=== PATIENT | female | born 1985 | race Caucasian/White ===

== ENCOUNTER 2023-03-24 10:06 | Outpatient (OUT) | payer BC, SELFPAY ==
[2023-03-24 12:04] LABS: Basophils Absolute Auto 0.1 10^3/uL (0.0-0.1); Eosinophils Absolute Auto 0.1 10^3/uL (0.0-0.7); Eosinophils Percent Auto 1.1 % (0.9-7.0); Hemoglobin 11.4 g/dL (12.0-16.0); Immature Granulocytes Abs Auto 0.01 10^3/uL (0.00-0.03); Immature Granulocytes Pct Auto 0.1 % (0.0-0.5); Lymphocytes Absolute Auto 3.2 10^3/uL (1.2-3.8); Lymphocytes Percent Auto 37.5 % (20.5-60.0); Mean Corpuscular HGB Conc 31.7 g/dL (29.9-35.2); Mean Corpuscular Hemoglobin 28.1 pg (26.7-34.0); Mean Corpuscular Volume 88.7 fL (81.0-99.0); Mean Platelet Volume 11.4 fL (9.5-13.5); Monocytes Absolute Auto 0.6 10^3/uL (0.3-0.8); Monocytes Percent Auto 6.8 % (1.7-12.0); Neutrophils Absolute Auto 4.5 10^3/uL (1.4-6.5); Neutrophils Percent Auto 53.5 % (43.0-75.0); Platelet Count 250 10^3/uL (150-450); Red Blood Count 4.06 10^6/uL (4.20-5.40); White Blood Count 8.4 10^3/uL (4.0-11.0)
[2023-03-24 12:22] LABS: Estimated Average Glucose 105 mg/dL; Glycohemoglobin A1C 5.3 % (4.5-6.2)
[2023-03-24 16:37] LABS: Alanine Aminotransferase 20 U/L (14-59); Albumin Globulin Ratio 1.1; Alkaline Phosphatase 59 U/L (46-116); Anion Gap 12.2; Aspartate Amino Transferase 7 U/L (15-37); BUN Creatinine Ratio 15.5; Bilirubin Total 0.6 mg/dL (0.2-1.0); Calcium 8.8 mg/dL (8.5-10.1); Carbon Dioxide 26.4 mmol/L (21.0-32.0); Chloride 105 mmol/L (98-107); Chol HDL Ratio 2.4; Cholesterol 171 mg/dL (<=200); Estimated GFR (African America >60 (>=60); Estimated GFR (Non-African Ame >60 (>=60); Globulin 3.5 g/dL; Glucose 89 mg/dL (74-106); HDL Cholesterol 70 mg/dL (40-60); Potassium 4.6 mmol/L (3.5-5.1); Sodium 139 mmol/L (136-145); Thyroid Stimulating Hormone 0.516 uIU/mL (0.358-3.740); Total Protein 7.5 g/dL (6.4-8.2); Triglycerides 53 mg/dL (<=150); VLDL CHOLESTEROL 10.6 mg/dL
== END 2023-03-24 10:07 | disposition home or self-care (01) ==
LOC: LAB 10:07
DX: Z00.00 Encounter for general adult medical examination without abnormal findings (principal)
CPT/HCPCS: 36415; 80053; 80061; 83036; 84443; 85025

== ENCOUNTER 2023-05-18 20:12 | Outpatient (REF) | payer BC, SELFPAY ==
[2023-05-22 00:07] LABS: Age Gdln ACOG Testing Note (.); HPV Aptima Negative (Negative); IGP, Aptima HPV, rfx 16/18,45 Note (.)
== END 2023-05-18 20:13 | disposition home or self-care (01) ==
LOC: LAB 20:12
PROVIDERS: Visit Provider Physician Assistant
DX: Z01.419 Encounter for gynecological examination (general) (routine) without abnormal findings (principal)
CPT/HCPCS: 87624; G0145

== ENCOUNTER 2023-06-12 12:46 | Outpatient (OUT) | payer BC, SELFPAY ==
--- NOTE | 2023-06-12 12:49 | MM_ITS ---
Patient Name: NORA LUZ MR#: [id number] : 1985 Exam Date: 06/12/2023 Ordering Doctor: EMELY Martinez . RADIOLOGY REPORT PROCEDURE: MM TOMOSYNTHESIS SCREENING BI COMPARISON: MG MAMM DX 3D LT CAD, 06/05/2022. MAMMO POST BIOPSY LEFT, 11/28/2021. MG STEREO CORE NDL W CLIP LT, 11/28/2021. MG MAMM SCREEN 3D VERONICA CAD, 09/17/2021. INDICATIONS: screening Calculator Name NCI Breast Cancer Risk Assessment Tool 5 Year Breast Cancer Risk 1.50% Lifetime Breast Cancer Risk 22.20% Personal Breast Cancer No Personal Ovarian Cancer No Treatments None Family Cancers Mother with breast cancer at age 66; Grandmother-maternal with breast cancer at age ~60; Uncle-paternal with lung cancer at age 50. LOCATION: [facility] BREAST COMPOSITION: Extremely dense, which lowers the sensitivity of mammography. FINDINGS: DIAGNOSTIC CATEGORY 2--BENIGN FINDING: RIGHT BREAST: No significant suspicious finding. No significant change has occurred. LEFT BREAST: No significant suspicious finding. Stable, previously biopsied nodule within posterior upper inner quadrant. No significant change has occurred. RECOMMENDATIONS: ROUTINE MAMMOGRAM AND CLINICAL EVALUATION IN 12 MONTHS. PLEASE NOTE: A NORMAL MAMMOGRAM DOES NOT EXCLUDE THE POSSIBILITY OF BREAST CANCER. A CLINICALLY SUSPICIOUS PALPABLE LUMP SHOULD BE BIOPSIED. Dictated by: Sohail Delgadillo M.D. on 06/12/2023 at 15:34 Approved by: Sohail Delgadillo M.D. on 06/12/2023 at 15:40
--- OUTSIDE RECORDS SUMMARY | 2023-06-12 12:51 | XMS_ITS | CCD ---
Author Name Unknown Address [address] [place] [address] Organization [facility] Care Team Providers Care Reliner Name Role Phone Fabi Kang Primary Care Provider Crystal Claudio Unavailable [phone] Unavailable Unavailable Fabi Kang Primary Care Provider Cornelio, Dr. Cleve Gaspar Primary Care Unavailab le [facility]asik[place]len Referring Unavailable Petek, Radha Cass Attending Unavailab le Lavertu, Dr. Hammonds Attending Unavailable Lavertu, Dr. Hammonds Referring Unavailable Gonya, Ms. Crystal Gordon Primary Care Unavailable Lavertu, Dr. Hammonds Attending Unavailable Self, Referral Referring Unavailable Murceryan, Dr. Cleve Gaspar Primary Care Unavailab le KARASIK ., DR MOLINA Admitting Unavailabl e KARASIK ., DR MOLINA Attending Unavailabl e GONYA, CRYSTAL Primary Care Unavailable KARASIK ., DR MOLINA Consulting Unavailabl e KARASIK ., DR MOLINA Admitting Unavailabl e KARASIK ., DR MOLINA Attending Unavailabl e GONYA, CRYSTAL Primary Care Unavailable KARASIK ., DR MOLINA Consulting Unavailabl e WEST, DR CHYNA Myaa Consulting Unavailable KUSH, CHARAN Admitting Unavailable KUSHCHARAN Attending Unavailable GONYA, CRYSTAL Primary Care Unavailable KUSHCHARAN YANG Consulting Unavailable KARASIK ., DR MOLINA Admitting Unavailabl e KARASIK ., DR MOLINA Attending Unavailabl e GONYA, CRYSTAL Primary Care Unavailable KARASIK ., DR MOLINA Consulting Unavailshari kelly WEST, DR CHYNA Maya Consulting Unavailable Jorge Luis KNITTER OPERATOR, Fabi Santiago Primary Care Provider VINAY KNITTER OPERATOR, MELISA Kelly Attending Unavailable PCP, Unknown Primary Care Unavailable GALINA GUILLEN Attending Unavailable MELISA MCLEAN Attending Unavailable Gonsuha, Crystal Primary Care Unavailable González, Crystal Attending Unavailable Gonya, Crystal Primary Care Unavailable CASSIUS DONG Attending Unavailable CASSIUS DONG Admitting Unavailable Allergies Allergy Classification Reported Allergen(s) Allergy Type Date of Onset Reaction(s) Facility (8 sources) Codeine; Translations: [codeine] Drug Allergy Hives, Vomiting, Other: See Comments [facility] (2 sources) Penicillins; Translations: [penicillins] Drug Allergy Hives, Vomiting, Other: See Comments [facility] (2 sources) Penicillins; Translations: [Penicillins] Allergy to drug (finding) MG-Otolaryngol [facility]on[facility] Work Phone: (4 sources) Penicillins Drug Allergy Hives, Vomiting, Other: See Comments [facility] (1 source) Codeine Drug Allergy 3 [facility] (1 source) Penicillins Drug allergy (disorder) 3 [facility] Medications Completed/Discontinued Medications Medication Drug Class(es) Dates Sig (Normalized) Sig (Original) Ethinyl Estradiol / Ferrous fumarate / Norethindrone (2 sources) Estrogen Lo Loestrin Fe 1 MG-10 MCG / 10 MCG Oral Tablet Quantity: 0 Refills: 0 Ordered: 19-Aug-2022 DO Active 24 hr metFORMIN hydrochloride 500 mg extended release oral tablet (4 sources) Biguanide Start: 05-23-2021 take 1 tablet by mouth once daily metFORMIN ER (GLUCOPHAGE XR) 500 mg 24 hr tablet Indications: Insulin resistance Take 1 tablet by mouth once daily. 90 tablet 3 05/23/2021 Active Comment on above: Take 1 tablet by once daily. Vitamin C TABS (2 sources) Vitamin C TABS Quantity: 0 Refills: 0 Ordered: 19-Aug-2022 DO Active Problems Active Problems Problem Classification Problem Date Documented Da te Episodic/Chronic Cardiac and circulatory congenital anomalies (2 sources) Vascular disorder; Translations: [Unspecified anomaly of circulatory system] Chronic Disorders of teeth and jaw (2 sources) Jaw pain; Translations: [Jaw pain] Episodic Headache; including migraine (2 sources) Pain in face; Translations: [Headache] Episodic Nervous system congenital anomalies (5 sources) Meningocele; Translations: [Spina bifida, unspecified] 03-26-2018 Chronic Other circulatory disease (2 sources) H/O: hypertension; Translations: [Personal history of other diseases of circulatory system] Episodic Other ear and sense organ disorders (4 sources) Otalgia, left ear; Translations: [Left ear pain] Episodic Other nutritional; endocrine; and metabolic disorders (2 sources) Insulin resistance; Translations: [Metabolic syndrome] Chronic Thyroid disorders (11 sources) Multinodular goiter; Translations: [Nontoxic multinodular goiter] 03-26-2018 Chronic Thyroid disorders (2 sources) Disorder of thyroid gland; Translations: [Unspecified disorder of thyroid] Episodic Unclassified (1 source) Low back pain, unspecified; Translations: [Low back pain, unspecified] Onset: 05-13-2023 Past or Other Problems Problem Classification Problem Date Documented Date Episodic/Chronic Immunizations and screening for infectious disease (1 source) Encounter for screening for human papillomavirus (HPV); Translations: [ENC SCREENING HUMAN PAPILLOMAVIRUS] Onset: 05-09-2022 Episodic Nonmalignant breast conditions (3 sources) Unspecified lump in the left breast, upper inner quadrant; Translations: [UNS LUMP IN LT BREAST UPR INR QUAD] Onset: 11-28-2021 Episodic Other and unspecified benign neoplasm (1 source) Benign neoplasm of left breast; Translations: [BENIGN NEOPLASM OF LEFT BREAST] Onset: 12-06-2021 Episodic Other female genital disorders (4 sources) Hypertrophy of uterus; Translations: [HYPERTROPHY OF UTERUS] Onset: 06-05-2022 Episodic Other screening for suspected conditions (not mental disorders or infectious disease) (5 sources) Inconclusive mammogram; Translations: [Encounter for screening for malignant neoplasm of cervix] Onset: 05-06-2022 Episodic Residual codes; unclassified (1 source) Other specified postprocedural states; Translations: [OTH SPECIFIED POSTPROCEDURAL STATES] Onset: 06-09-2022 Episodic Residual codes; unclassified (1 source) Family history of malignant neoplasm of breast; Translations: [FAMILY HX MALIG NEOPLASM OF BREAST] Onset: 06-09-2022 Episodic Residual codes; unclassified (1 source) Family history of malignant neoplasm of trachea, bronchus and lung; Translations: [FAM HX MALIG NEOPLSM TRACH BRON LNG] Onset: 06-09-2022 Episodic Results Test Name Value Interpretation Reference Range Facility XR LUMBAR SPINE, AP/LATERALo n 05-13-2023 XR LUMBAR SPINE, AP/LATERAL [facility] Diagnostic Imaging [facility] [id number] Diagnostic Imaging Report : [id number] Signed Name: NORA KAUFMAN MRUN: [id number] : 1985 Loc: [facility] Age / Sex: 37 / F ADM Status: REG CLI ADM Date: 05/13/23 Room/Bed: Ordering Physician: MELISA LO Procedure: XR LUMBAR SPINE, AP/LATERAL Order Number(s): [id number] Ordered Date: 05/13/23 Ordered Time: 1256 EXAMINATION: 3 XRAY VIEWS OF THE LUMBAR SPINE 05/13/2023 1:08 pm COMPARISON: None. HISTORY: ACUTE LUMBAR PAIN FINDINGS: Three views of the lumbar spine demonstrate moderate levoscoliosis with no fracture or subluxation. The soft tissues appear unremarkable. There is a limbus vertebra rising from the superior anterior aspect of the L5 vertebra. The SI joints, as visualized, appear unremarkable. IMPRESSION: Levoscoliosis with mild disc space narrowing at the L5-S1 level. No evidence of acute fracture or subluxation. RECOMMENDATION: If clinical symptoms persist, I recommend outpatient MRI of the lumbar spine. Dictated By: Musa Bowers III, DO Dictated Date/Time: 05/13/23 1315 Signed By: Musa Bowers Signed Date/Time: 05/13/23 1321 Transcribed Date/Time: 05/13/[address] [facility] Established Visit (Otolaryng ology)on 12-16-2022 Established Visit (Otolaryngology) No report was sent Normal [facility] s CNPNon 10-31-2022 CNPN Telephone (ENDOMN) NORA KAUFMAN ([id number]) 1985 F Date Time Provider Department 10/31/22 IRENE MOSS During your visit today, we recorded the following information about you: Jessica Mansfield 10/31/2022 8:46 AM Signed Called pt to r/s 11/[address] Ru Freedman -due to provider being called into a meeting. Patient was unhappy about appointment r/s and declined rescheduling at this time, will call back office to reschedule. Pt can be put into virtual est spots on 11/11 or 11/12. Allergies As of Date: 10/31/2022 Noted Allergy Reaction CODEINE 4 - Hives 11 - Vomiting 14 - Other: See Comments Comments: fever PENICILLINS 4 - Hives 11 - Vomiting 14 - Other: See Comments Comments: Fever Date Reviewed: 05/20/2021 Reviewed by: Irene Freedman MD - Fully Assessed Reason for Visit: Appointment [186] Cmt: Called pt to r/s 11/[address] Ru Freedman -due to provider being called into a meeting. Patient was unhappy about appointment r/s and declined rescheduling at this time, will call back office to reschedule. Pt can be put into virtual est spots on 11/11 or 11/12. Prescriptions as of 10/31/2022 - metFORMIN ER (GLUCOPHAGE XR) 500 mg 24 hr tablet Take 1 tablet by mouth once daily. Problem List As Of Date 10/31/2022 Noted Resolved Meningocele (HCC) [Q05.9] Multiple thyroid nodules [E04.2] Encounter Status:Closed by JESSICA MANSFIELD on 10/31/22 Normal [facility] Established Visit (Otolaryng ology)on 09-16-2022 Established Visit (Otolaryngology) Diagnoses/Problems Left ear pain (388.70) (H92.02) Goiter (240.9) (E04.9) Vascular malformation (747.9) (Q27.9) Patient Discussion/Summary Left facial and preauricular discomfort in an area where she had surgery in the past for a vascular malformation. I cannot appreciate anything clinically besides the discomfort on palpation. There was nothing different on imaging. The patient seems to think that it may be related to to some medication that she takes for control. She will discuss that with her physicians. Thyroid nodules which were biopsied in the past and were found to be normal. She is due to follow-up with her note specialist. I will see her in 3 months. Provider Impressions Left facial and preauricular discomfort in an area where she had surgery in the past for a vascular malformation. I cannot appreciate anything clinically besides the discomfort on palpation. There was nothing different on imaging. The patient seems to think that it may be related to to some medication that she takes for control. She will discuss that with her physicians. Thyroid nodules which were biopsied in the past and were found to be normal. She is due to follow-up with her note specialist. I will see her in 3 months. Chief Complaint Follow-up regarding a left jaw and ear pain History of Present IllnessThis patient had a surgery in the left auricular and jaw area for what turned out to be a vascular malformation. I saw her in July 2022 because for a month ago she started having significant discomfort on that side of her face. Interestingly she changed her position at night and also changed pillows and the discomfort is much less. She also had had some issues with thyroid nodules in the past eventually this was biopsied and was described as being benign. We got a repeat the CT scan of her neck that was done on September 04, 2022. I personally reviewed that scan it really does not show any significant changes from the prior scan that was done back in 2014. 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 The patient thinks that it may be related to some new medications that she takes for control. Of note is that the patient also has multiple thyroid nodules. She had a repeat ultrasound that basically does not show any changes from years ago. She is to follow-up with her note specialist. Active Problems Facial pain (784.0) (R51.9) Goiter (240.9) (E04.9) Hyperthyroidism (242.90) (E05.90) Jaw pain, non-TMJ (784.92) (R68.84) Left ear pain (388.70) (H92.02) Otalgia of left ear (388.70) (H92.02) Vascular malformation (747.9) (Q27.9) Past Medical History History of hypertension (V12.59) (Z86.79) History of Thyroid trouble (246.9) (E07.9) Surgical History History of Section Family History Family history of Thyroid trouble Family history of colitis (V18.59) (Z83.79) Social History Currently working Drinks wine (V49.89) (Z78.9) Former smoker (V15.82) (Z87.891) Lives with family Occasional alcohol use Allergies codeine Recorded By: Winston Brewer; 12/12/2014 10:59:01 AM Penicillins Recorded By: Winston Brewer; 12/12/2014 10:59:01 AM No Known Environmental Allergies Recorded By: Winston Brewer; 12/12/2014 10:59:00 AM Current Meds Medication NameInstruction Lo Loestrin Fe 1 MG-10 MCG / 10 MCG Oral Tablet Vitamin C TABS Vitals Vital Signs Recorded: 16Sep2022 08:10AM Height5 ft 3 in Grdpwk756 lb BMI Xkqvyybghm32.87 kg/m2 BSA Calculated1.77 Tobacco Useb) No Physical Exam Palpation of the parotid, neck, and thyroid field fails to show any worrisome masses or adenopathies. Palpation of the left preauricular area causes some discomfort. I cannot appreciate any underlying lesion. 'Scores and Scales' Signatures Electronically signed by : Cassius Dong MD; Sep 16 2022 8:39AM EST (Author) Normal [facility] Outside Recordson 09-16-2022 Outside Records [id number] .[id number] [facility] Tobacco Screening.on 023 Tobacco use status CPHS b) No MG-Otolaryngolog y-Lyrically [employer] Work Phone: US THYROID/PARATHYROIDon Radiology Result ACTIONABLE [facility] Coding Summaryon 09-08-2022 Coding Summary HTMLBase 64 VxajrlcbBEo1lDz+PGhlYW Q+FE8KSJRsL91ruMKydP1E Q1eZMC5BOZMGNHBJZO4VTZ 0xmQN1XHpgM0TvuiBw FxosjPZsMP86AZr9SER9tO lcBOpsqN9qlAAmX1z9SnLu XT20sW81AJgkZWEnRrY1Vt ZpbjsgbWFy P6pgPiVmsITgDll+PHRhYm xlIHdpZHRoPScxMDAlJyBz fAcySJ0rEo8dGBMjNYOtkY xhcHNlOiBj j1ulPTWcZUocZV9lzQdiA5 ZtmHN6GCIjp0c4Iy42yKI+ TJAqGOL4bGlpYZtjo767Dy Ggb4bePAT9 rESnHIepDZB9S76nr2Q7SM SyHAJjSZT7rEF0dC0bfRun tzbfH5BmmWOlPmJ6GMU9dV YcxJ2ctImj ihkpxD6kVuo+H61DJG4GML UEJG8RHjf0L3PtRxbbgHU+ IP19CNGiGX46iMCzoRWwb5 bbxYb2ByAz SRHuAHF3aWhoCBebl0XrTL QfY29opYMcq4A3PGKdpAzd gRRiVfUjyMF3lJ8eJKvyyg vlj4kxdweb Inlhx2mjxj94hA12E34jNN ctEFYjTIB3AMNiHGMmkFrn xc9ovM3zGs4+PChfz1bkt6 rsyJg8DjBw IXVcjfBplRswIIZ2z5PsSi 53W5MlsHmtk9AkUyd4my33 nAMra1G5oYD6KCnoPXZpoN 9lYFbgMlX9 TXQvCgBhhK72nMAqXPurGg 4npIgxcHjhYY4eDKQbrxuk WXBymJ1uNSXttLZzpXivJM 4wNTBpbjtm r751StJfNSM3IIZfiMBqN6 JdqF3zNmSsDRBbVOFeW9Wz iRVlEDebN079UXloGrP6WZ SiezKfP2Da YXZbjNdoUgF0w2L7En4Ks0 TnufalTJQ3EMkpYBJdEnUu TeVtPpF5G1EuMsa4DWDigO ifET8cR5Lz ZAEivyohyxpohQR2SJFqNW HlqM18dBMyCShfVc3zy4E0 p099KIPuXVPjtL22Go1kaN ogMTBwdCBU uA4wqbuks1bryenrOhEvSA HhRXu8WDh2QHVdsNppCxMx PDB6OiL3ART8aIFlxZ9kcW mmrritbI1t Oyc+Q27rmH4kBNU6JGI4wr hrEMAxhfCsZE37AT02X6Mg PjwvdGFibGU+PGRpdiBzdH lxDX0sOmNd v0ncs4DhXCxoG7KcHJBvYR wnDjt8KKQwWLA6oUD3hH7i LPDqJNvhe3X0sMY8W0Xwtn Btep1qw3sv XCXhTYxvM16meLLgq3L0UX VuoNN1XIFbfFcmLdGxhA85 Oyc+BKGfzSglo5HiJhogk0 rvg0xyjCv1 ChPmFBGxcnXiiKtxSGE5o2 WrAx42C17vMXntHXPfBNVs IALiUAHxaHzvgk5xcG5aVv 8+PGNvbCB3 wTG0yL5zRYAdIfQ4XIfaX7 00KsValHUcQyktl4tej0hi vSy1YzJqDAPpqzIwkWvrOK K4q0ZzKj22 S34wZXexFIGqDXPqHBErRS CznQvdhp8sgC3gUt8+PC9j v4keju81kC82uPD+PHRkIH I0bOboMOka XZPizA9pPNrlWfN4PSUeNp OymK94zDYbZWvuKv8tjBan gPjbJC6xVPPkvayaa570St Caa1pfZBXy uWGaLFlyGPD2Q02hv2H2PK MeJCVmAFT2jJX2cZ3vpEcx bjogbGVmdDsgdmVydGljYW fuQTinC970 IHRvcDsnPlBhdGllbnQgTm VgCHd9N3EgFrv5SPJkwEkg LB8ufTCoLAvnTx8jgFssxC uhOX5dBDRz hhhgi453VcHww5erTWLhhG FwRXngZET4Q79kh7A5BUQp UXJeBAK6wTD3pV5byGhuos ogbGVmdDsg imPhhIknTYjuMRytA983YF RvcDsnPkJpcnRoIERhdGU6 YM62MZ66iLCvo0P0yUD5B8 BhZGRpbmct yguquJC3MADrMLXzuT60Jc 3agGyjJe2oUFEtEDT7POWd sBPjU6TeaO7uVhBqYMPfTY CuX1WxcAPc UYnvH691ELedJpE3YFViju KgB6ZyVOWgyVvhXnU7y7K9 Mw9QU2T6RO34FA14rYQbd9 M9kMO2L5Lm SUDuqwutvgupzRV9NWEnJM EksC11Ol7cyNrsKq0fLOSk TVT5HHDpsVAxQ5NseC7lGl AjMDAwMDAw W3QugCPvWZdyY557LVvvWv V3EVGwtpOeO2LsUYQgvIdk WoK0h0D4Uy9FEIj8IN17OU 21qONzr8H8 nHB4F5FhOAQhpygzzncsiQ R2IIHaOVNpnF43Zt7ztHrq Gm6lJUQkEZQ6NWWgrWMtJ2 OvrM4vUmKs GATtJRKwY1FxtOFjWXrlW7 05SLonCsD1XRXrbgKhV5Dl NEMvuKivVvV5a3F8Ke0EFA HuLR48WTK3 jXV4DE70DK70R9QrHnhneD FibGU+PHRhYmxlIHdpZHRo KHaiPJJsYfZabUlsQM8bRj 9yZGVyLWNv bLpvhISaYwYif8bzIBEyNU xdHM3rmQupY4KnlLW9EZSw z7a2Ha41Q92wT6AizCN+PG YtnHT3lYJ2 hE4hNjPgVjN5XOzwO752Yk FqgSGgSuxan0nil1ornXj7 JfJ6YSFnizEiqQbzOKM6r6 JuHh42G15k IHdpZHRoPSIxNSUiIHZhbG ozla0kdA4lWg5+PGNvbCB3 lAQ7tH0hRyWrWuR0CBifW7 49InRvcCIv Ibmjy5zxp5ewqOn6LzNhNQ KbwxQczUjaIUV3l6KlHo09 P2OioDujd6QuUix7ut50lW Amc4S6fAB1 F8GhLEIzdzrebUUrdHbrXQ 2hJOCzoapgFPZpxB6pZPWa X8u2HgWxOeZ4OIdmC5Gqnr A7QVHabFWu MXxbSKX5G08pr9M9AVQzSM ZmHYO0bAI7dH0lcMrccopk bGVmdDsgdmVydGljYWwtYW joA124GQLa nUqfOBDrxB6kPGCnqUOkaX doPJ8oQIYiqhdwDfJjQIAK HRCIGARZFRIIBAa2H1LlTl n5OVHwdVjx UN5sdCHfEDtkRg8ekStmkD fqAC5zSRXeitosRBCxeX0t SCZwbZRfkIunHS6lPIChdm fyg396OyKo HRZ8MIDrcVSsZ8XpbB1eIw IgGUZoUVQqL9UvdKKqYPcz U216LYvuUgP9VIYokzVmF0 FsLWFsaWdu NmX4c3G9Za1sJI8hKD9iUS t3CB92RK72cXJsq0Y9aPQ3 P4NyKCUlpbhmeagraQX1JK PuGKMdlV34 kAGuKIoqWl3wi2J9i030EZ BvUSQdmW31Ny5rlZlcEGTm jSBRoE2kdpija6prvtiaNp AwMDAwMDt0 IHu0JRGozZphPlMuTJO6Ko X4PWQ2qIWguR6geFkqohdx yJ8uJod+IvnsNVDowwU0W4 GzBjg8GPQu tUbgBD6vlCJkTWncWv7vjX vyhUofEL6oCQEshyzbIBQm sT7lCBDwiCZagRgcYL5sRX Gyvhyku644 FjCtZRF4GWUpdCHrL7KkoK 2hBkBgVOPnAFCpW7GwfKAf YFmvE673FTnhUuV9FMXfrs CkU8DnCTYo bLxnQrY9i9E7Xb9FJC8YBO V0F4HgEaa1FIIozAtsGI7m rFYqVIqaRp9rhXddyRscYE 4wNTBpbjtw WHLyrA9nSJXpwPXweKauPF 6oRHNrsidow781TnTaGWV7 GNGzzLXiF8XonQ6tSiYjDI WyFDTxU3As yNAqBAwkQ661DIvrBlN4BQ QempYsE3MpADXgaYjlUtI7 m7Q1Bp5UJSiurNZ+PC90cj 15Y4RoSkok Zxg4YLLxCML9bHK3qY9eFN OaKCdpq4V9jAA2L9YohjKp pb6ri3afOSOhLYhuO47vpN Rxs3Y8MZUz mVI6YIJkaEkqGlFvnB46Wy c+QCUltIhwd5ZhMoxqy2ot n9vzxQf5SjZiPNZnfxIzzC qlDVR6i1Oi Zw15P44qPLnbJKUwKZHfUF AtVEKmfOkncp1pnF0wVu0+ DYQajEA8kSA4iW5uJvVtXp B9PZlaD313 BgNijOPuNzjdr9flq5yirC e4FhIwNURzkmIcmIdnFLM9 i8BhRr65M0BfwStxv0AnCj b7ac71fMBw n4K5tGR5X6YqSFJwtuaroQ ZbtJurXR7uCNXqsxhlOFGb iD6qYNIhJ3r7WwCvBpI0PR qzB1KwihK7 FOWuiIQdLOImjBOFmO9iko grp5nonuruRpXaHYHvMOd5 JRa0DTYqkCbkMoLuDBA2Po L0EEE7cKTb yM6qhMuteirczY5jDct+UG v2s8imyBPyIN8oqSO8OX49 KX99oDXle5Y5kSR5G3CjVE Rpbmctcmln vSU4COYzUTXcbA05Lw8tcP pqUr8eTXBmRUL2IPTfqOWb K6VutN8wMeSfKQKhRYLmV3 RleHQtYWxp A589OJtsBjZ1CYOfxkJqI4 JtEVGjcUohHwL7k2C0Yv6X BL19EF73BA61hRUip9G0iI P8L5OxHVFm jpbcmmxehSK2UZLaFJCreO 36Zm4jxCetAl0pNWCyXKR4 NDSrfKNvP7KtbI5aVtWvEG HoAFWjP3Df uRCnWJmaT632LLvxSxN8XU MwzlLyX5TiYYUpsXaaLiX0 g9T2Fz3KBd17WB05NM14vZ Jiw9E5dON8 B8TaMMQtldyajbwjvAP5UU OkUQKsbO91Xf5uxZrpBo2w RIDmLNA6VYFptOZyS8DxpH 9yOiAjMDAw HEPeD4HrePPmIHtcJ335KR gbGxG0LZDyhkIhW6YgZQBh uLatExE9m0Y6Ae4VDXdvhm d1F6GcVjgb dHI+XJ27VBGpUW92uEZitN Vck7ygeWj5LvOiTLZhPGP8 lYfjQYoyq3JgZONuC94gzY Nqa4L7SNKr bGx (more content not included)... 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 Images obtained with the uneventful administration of 100 mL Omnipaque 350 intravenous contrast. 3D PROCESSING: None. COMPARISON: Reports from outside MRI neck provided, images from the studies are not available at the time of dictation. Thyroid ultrasound 12/18/2017 FINDINGS: Head: No intracranial mass effect or shift of midline structures. Basal cisterns are not effaced. Prominent vascular structure traversing the left cerebellum, somewhat perpendicular to the cortical surface (image [id number] series 601). Sinus/Orbit/Dentition: Paranasal sinuses, middle ears and mastoids are well aerated. Globes and orbits are within normal limits. No deep caries or periapical lucencies. Mucosal surface: No focal mass along the aerodigestive tract. Nasal vault, nasopharynx, oral cavity, oropharynx including base of tongue, and hypopharynx are unremarkable. Glands: Bilateral submandibular and lingual glands enhance symmetrically. Geographically enhancing lobular lesion within the deep lobe left parotid measuring 24 x 22 mm axial and 32 mm craniocaudal. Small focus of calcification adjacent to this lesion within the left parotid gland (image 85 series 2). This lesion extends into the temporomandibular joint. Director Of Bands/Parapharyng eal: Muscles of mastication are unremarkable. Parapharyngeal fat is not displaced. Retropharyngeal: No retropharyngeal fluid or adenopathy. Nodes: Prominent lymph nodes in the bilateral level 2A stations with preserved fatty roberto, favored to be reactive. Larynx: Symmetric vocal cords. No focal mass within the supraglottic, glottic or subglottic larynx. Thyroid, cricoid, arytenoid cartilages are unremarkable. Hyoid is within normal limits. Thyroid: Heterogenous enhancing thyroid with bilateral nodules measuring up to 12 mm on the right and 14 mm on the left, grossly similar to size from prior ultrasound. No lesion within the tracheoesophageal grooves. Vascular: Prominent retromandibular vein draining the enhancing lesion at the deep lobe of the left parotid. Normal arterial enhancement without high grade arterial narrowing. Osseous: Dehiscence of the floor of the left middle cranial fossa at the temporomandibular joint. There is narrowing of the right temporomandibular joint. No aggressive osseous lesions. Soft tissues: No focal soft tissue mass or skin lesion. Thoracic inlet: No large masses nor pneumothorax in the partially visualized lung apices. IMPRESSION: 1. Lobular enhancing lesion in the deep lobe of the left parotid gland with hypertrophic draining retromandibular vein and possible associated phlebolith favored to be venous malformation. This lesion extends into the left temporomandibular joint and possibly associated with the dehiscence of the floor of the left middle cranial fossa. Unfortunately, prior images are not available for comparison. Images are not optimized for arterial evaluation, small arterial component of this lesion may be present although unusual given presence of phleboliths. 2. Bilateral thyroid nodules, grossly similar in size when correlated with prior sonography, however sonographic evaluation remains to be the standard follow-up evaluation of thyroid nodules. Final Dictated by: Rimma Broussard MD Dictated DT/TM: 09/07/22 8:02 Signed (Electronic Signature): Rimma Broussard MD 09/07/22 9:04 am Technologist: Todd MAX [facility] Provider Orderson 08-29-2022 Provider Orders [id number] [facility] Outside Recordson 08-21-2022 Outside Records [id number] [facility] Initial Visit (Otolaryngolog y)on 08-19-2022 Initial Visit (Otolaryngology) Patient Discussion/Summary Left facial and preauricular discomfort in an area where she had surgery in the past for a vascular malformation. I cannot appreciate anything clinically besides the discomfort on palpation. After discussion it was agreed to go ahead with imaging. Thyroid nodules which were biopsied in the past and were found to be normal. She is due to follow-up with her note specialist. I will see her after the scans. Provider Impressions Left facial and preauricular discomfort in an area where she had surgery in the past for a vascular malformation. I cannot appreciate anything clinically besides the discomfort on palpation. After discussion it was agreed to go ahead with imaging. Thyroid nodules which were biopsied in the past and were found to be normal. She is due to follow-up with her note specialist. I will see her after the scans. Chief Complaint Consultation for left jaw and ear pain History of Present IllnessThis patient is a former patient of [facility] that I have not seen since 2014. 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 Approximately a month ago she started having significant discomfort on that side of her face. Interestingly she changed her position at night and also changed pillows and the discomfort is much less. She also had had some issues with thyroid nodules in the past eventually this was biopsied and was described as being benign. She has not followed up in the past few years. Review of Systems Her past medical history and review of system is limited to the vascular malformation, the thyroid nodules. Her medications are documented in the chart. She describes some allergy to penicillin and codeine. She does not know any details about that. She does not smoke. She drinks minimally. She works in a bank. She is here alone today. Active Problems Goiter (240.9) (E04.9) Hyperthyroidism (242.90) (E05.90) Vascular malformation (747.9) (Q27.9) Past Medical History History of hypertension (V12.59) (Z86.79) History of Thyroid trouble (246.9) (E07.9) Surgical History History of Section Family History Family history of Thyroid trouble Family history of colitis (V18.59) (Z83.79) Social History Currently working Drinks wine (V49.89) (Z78.9) Former smoker (V15.82) (Z87.891) Lives with family Occasional alcohol use Allergies codeine Recorded By: Winston Brewer; 12/12/2014 10:59:01 AM Penicillins Recorded By: Winston Brewer; 12/12/2014 10:59:01 AM No Known Environmental Allergies Recorded By: Winston Brewer; 12/12/2014 10:59:00 AM Current Meds Medication NameInstruction Lo Loestrin Fe 1 MG-10 MCG / 10 MCG Oral Tablet Vitamin C TABS Vitals Vital Signs Recorded: [id number] 08:21AM Height5 ft 3 in Vydiod092 lb 4.8 oz BMI Tsvajlrmmf26.28 kg/m2 BSA Calculated1.78 Tobacco Useb) No PHQ-2 #1. Over the last 2 weeks have you felt down, depressed or hopeless? (If yes, answer PHQ-9 below)No PHQ-2 #2. Over the last 2 weeks have you felt little interest or pleasure in doing things? (If yes, answer PHQ-9 below)No Falls Screening (Age 18+)a) No falls within the last year Physical Exam The patient is alert and oriented. Examination of the external ears, ear canals, and eardrums, is within normal limits. Examination of the anterior and external nose is negative. Examination of the oral cavity and oropharynx is normal. There is no evidence of any mucosal lesions. There is good mobility of the tongue and palate. There is good mandibular excursion. Palpation of the parotid, neck, and thyroid field fails to show any worrisome masses or adenopathies. Palpation of the left preauricular area causes some discomfort. I cannot appreciate any underlying lesion. A flexible laryngoscopy was carried out. Under topical Xylocaine and Tim-Synephrine the scope was introduced through the nostril. The nasopharynx, base of tongue, hypopharynx, and larynx are visualized. The vocal cords are normally mobile. There is no pooling of secretions in the piriform sinuses. There is no evidence of any mucosal lesions. 'Scores and Scales' Signatures Electronically signed by : Cassius Dong MD; Aug 19 2022 8:41AM EST (Author) Normal [employer] Tobacco Screening.on 023 Adult depression screening assessment No datatracker-Otolaryngolog [employer]-Lyr[employer] Work Phone: Fall risk assessment a) No falls within the last year datatracker-Otolaryngolog y-Lyrically [employer] Work Phone: Tobacco use status CPHS b) No datatracker-Otolaryngolog [employer] Work Phone: US PELVIS AND TRANSVAGon US PELVIS AND TRANSVAG EXAMINATION: US PELVIS AND TRANSVAG HISTORY: Hypertrophy of uterus COMPARISON: No relevant comparison available. FINDINGS: The uterus is anteverted. The uterus is normal in size, contour and echotexture measuring 9.5 x 5.2 x 5.2 cm. No focal myometrial mass The endometrium measures 13.9 mm, heterogeneous. The right ovary is normal in appearance measuring 2.7 x 2.1 cm. Normal color and Doppler flow The left ovary is normal in appearance measuring 2.4 x 1.6 x 1.7 cm. Normal color and Doppler flow No free fluid IMPRESSION: Prominent endometrium, correlate with the menstrual cycle Electronically authenticated by: CHYNA BEE Date: 2022-06-06 07:02 Normal [facility] MAMM DX 3D LT CADon 06-05 MG MAMM DX 3D LT CAD Patient: NORA KAUFMAN Exam Date: 06/05/2022 : 1985 Gender:F Ordering : DR GLEN DOMINGUEZ . Admission #: [id number] Family : Order #: [id number] CLICK HERE TO VIEW EXAM RADIOLOGY REPORT PROCEDURE: MAMMOGRAM DIAGNOSTIC 3D LEFT CAD, 06/05/2022, 13:39 ULTRASOUND BREAST LEFT LIMITED, 06/05/2022, 14:19 COMPARISON: MAMMO POST BIOPSY LEFT, 11/28/2021. INDICATIONS: Postprocedural state finding Calculator Name NCI Breast Cancer Risk Assessment Tool 5 Year Breast Cancer Risk 1.40% Lifetime Breast Cancer Risk 22.30% Personal Breast Cancer No Personal Ovarian Cancer No Treatments None Family Cancers Mother with breast cancer at age 66; Grandmother-maternal with breast cancer at age 60; Uncle-paternal with lung cancer at age 50. LOCATION: [facility] BREAST COMPOSITION: Extremely dense, which lowers the sensitivity of mammography. FINDINGS: DIAGNOSTIC CATEGORY 2--BENIGN FINDING. NO CHANGE FROM COMPARISON. LEFT BREAST: No significant suspicious finding. Scattered heterogeneous appearance, grossly stable. Clustered pleomorphic microcalcification, architectural distortion or mass lesion. No ultrasound abnormality. RECOMMENDATIONS: CLINICAL EVALUATION. PLEASE NOTE: A NORMAL MAMMOGRAM DOES NOT EXCLUDE THE POSSIBILITY OF BREAST CANCER. A CLINICALLY SUSPICIOUS PALPABLE LUMP SHOULD BE BIOPSIED. Dictated by: Chyna Bee MD on 06/05/2022 at 15:03 Approved by: Chyna Bee MD on 06/05/2022 at 15:05 Normal [facility] US BREAST LEFT LIMITEDon US BREAST LEFT LIMITED Patient: NORA KAUFMAN Exam Date: 06/05/2022 : 1985 Gender:F Ordering : DR GLEN DOMINGUEZ . Admission #: [id number] Family : Order #: [id number] CLICK HERE TO VIEW EXAM RADIOLOGY REPORT PROCEDURE: MAMMOGRAM DIAGNOSTIC 3D LEFT CAD, 06/05/2022, 13:39 ULTRASOUND BREAST LEFT LIMITED, 06/05/2022, 14:19 COMPARISON: MAMMO POST BIOPSY LEFT, 11/28/2021. INDICATIONS: Postprocedural state finding Calculator Name NCI Breast Cancer Risk Assessment Tool 5 Year Breast Cancer Risk 1.40% Lifetime Breast Cancer Risk 22.30% Personal Breast Cancer No Personal Ovarian Cancer No Treatments None Family Cancers Mother with breast cancer at age 66; Grandmother-maternal with breast cancer at age 60; Uncle-paternal with lung cancer at age 50. LOCATION: [facility] BREAST COMPOSITION: Extremely dense, which lowers the sensitivity of mammography. FINDINGS: DIAGNOSTIC CATEGORY 2--BENIGN FINDING. NO CHANGE FROM COMPARISON. LEFT BREAST: No significant suspicious finding. Scattered heterogeneous appearance, grossly stable. Clustered pleomorphic microcalcification, architectural distortion or mass lesion. No ultrasound abnormality. RECOMMENDATIONS: CLINICAL EVALUATION. PLEASE NOTE: A NORMAL MAMMOGRAM DOES NOT EXCLUDE THE POSSIBILITY OF BREAST CANCER. A CLINICALLY SUSPICIOUS PALPABLE LUMP SHOULD BE BIOPSIED. Dictated by: Chyna Bee MD on 06/05/2022 at 15:03 Approved by: Chyna Bee MD on 06/05/2022 at 15:05 Normal [facility] GLUCOSE BLOODon 06-02-2022 Glucose [Mass/Vol] 90 mg/dL Normal 74-106 [facility] Comment on above: Performed By: #### L IPID, GLUC #### [facility] [address] [address] [address] Jose Nolasco LIPID PROFILEon 06-02-2022 CHOL-HDL RATIO NORM SEE BELOW Normal [facility] Comment on above: Result Comment: 3.3 - 4.4 LOW RISK 4.4 - 7.1 AVERAGE RISK 7.1 - 11.0 MODERATE RISK >11.0 HIGH RISK Performed By: #### L IPID, GLUC #### [facility] [address] [address] [address] Jose Nolasco Cholesterol [Mass/Vol] 163 mg/dL Normal <=200 [facility] Comment on above: Performed By: #### L IPID, GLUC #### [facility] [address] [address] [address] Jose Nolasco Cholesterol in HDL [Mass/Vol] 77 mg/dL Critically high 40-60 [facility] Comment on above: Performed By: #### L IPID, GLUC #### [facility] [address] [address] [address] Jose Nolasco Cholesterol in LDL [Mass/Vol] 77.4 mg/dL Normal [facility] Comment on above: Performed By: #### L IPID, GLUC #### [facility] [address] [address] [address] Jose Nolasco Cholesterol.total /Cholesterol in HDL [Mass ratio] 2.1 {ratio} Normal [facility] Comment on above: Performed By: #### L IPID, GLUC #### [facility] [address] [address] [address] Jose Nolasco HDL NORMAL > or = 60 mg/dl - LO W CARDIOVASCULAR RISK <40 mg/dl - HIGH CARDIOVASCULAR RISK Normal [facility] Comment on above: Performed By: #### L IPID, GLUC #### [facility] [address] [address] [address] Jose Nolasco LDL CALC NORMAL SEE BELOW Normal [facility] Comment on above: Result Comment: <100 mg/dl OPTIMAL 100 - 129 mg/dl NEAR OR ABOVE OPTIMAL 130 - 159 mg/dl BORDERLINE HIGH 160 - 189 mg/dl HIGH >190 mg/dl VERY HIGH Performed By: #### L IPID, GLUC #### [facility] [address] [address] [address] Jose Nolasco Triglyceride [Mass/Vol] 43 mg/dL Normal <=150 [facility] Comment on above: Performed By: #### L IPID, GLUC #### [facility] [address] [address] [address] Jose Nolasco VLDL CALC 8.6 mg/dL Normal [facility] Comment on above: Performed By: #### L IPID, GLUC #### [facility] [address] [address] [address] Jose Nolasco PAP ACOG PANEL 2: 30 to 65on 05-14-2022 . . Normal [facility] Comment on above: Result Comment: Perf ormed at: WB Performed By: #### [id number] #### [facility] [address] [place] [address] Dr. Jose Nolasco Age Gdln ACOG Testing 30-65 Normal [facility] Comment on above: Performed By: #### [id number] #### [facility] [address] [place] [address] Dr. Jose Nolasco DIAGNOSIS: Comment Normal [facility] Comment on above: Result Comment: NEGA TIVE FOR INTRAEPITHELIAL LESION OR MALIGNANCY. Performed at: WB Performed By: #### [id number] #### [facility] [address] [place] [address] Dr. Jose Nolasco HPV Aptima Negative Normal Negative [facility] Comment on above: Result Comment: This nucleic acid amplification test detects fourteen high-risk HPV types (16,18,31,33,35,39,45,51,52,56,58,59,66,68) without differentiation. Performed at: =G Performed By: #### [id number] #### [facility] [address] [address] [address] Jose Nolasco HPV Genotype Reflex Comment Normal [facility] Comment on above: Result Comment: Crit eria not met, HPV Genotype not performed. Performed at: WB Performed By: #### [id number] #### [facility] [address] [place] [address] Dr. oJse Nolasco Methodology: Comment Normal [facility] Comment on above: Result Comment: This liquid based ThinPrep(R) pap test was screened with the use of an image guided system. Performed at: WB Performed By: #### 4 [id number] #### [facility] [address] [place] [address] Dr. Jose Nolasco Note: Comment Normal [facility] Comment on above: Result Comment: The Pap smear is a screening test designed to aid in the detection of premalignant and malignant conditions of the uterine cervix. It is not a diagnostic procedure and should not be used as the sole means of detecting cervical cancer. Both false-positive and false-negative reports do occur. . Performed at: WB Performed By: #### [id number] #### [facility] [address] [place] [address] Dr. Jose Nolasco Performed by: Comment Normal [facility] Comment on above: Result Comment: Josey Moreno Racking Technician (ASCP) Performed at: WB Performed By: #### [id number] #### [facility] [address] [place] [address] Dr. Jose Nolasco Specimen adequacy: Comment Normal [facility] Comment on above: Result Comment: Sati sfactory for evaluation. Endocervical and/or squamous metaplastic cells (endocervical component) are present. Performed at: WB Performed By: #### 4 [id number] #### [facility] [address] [place] [address] Dr. Jose Nolasco MAMMO POST BIOPSY LEFTon MAMMO POST BIOPSY LEFT Patient: NORA KAUFMAN Exam Date: 11/28/2021 : 1985 Gender:F Ordering : DR GLEN DOMINGUEZ . Admission #: [id number] Family : Order #: [id number] CLICK HERE TO VIEW EXAM RADIOLOGY REPORT PROCEDURE: MAMMOGRAM POST BIOPSY IMAGES COMPARISON: MG STEREO CORE NDL W CLIP LT, 11/28/2021. INDICATIONS: Lump in left breast BREAST COMPOSITION: FINDINGS: BIOPSY MARKER: The metallic marker is not definitively visualized. BREAST FINDINGS: Postprocedural changes. Change in the targeted mass consistent with interval partial sampling RECOMMENDATIONS: Dictated by: Chyna Bee MD on 11/28/2021 at 14:35 Approved by: Chyna Bee MD on 11/28/2021 at 14:36 Normal [facility] MG STEREO CORE NDL W CLIP LT on 11-28-2021 MG STEREO CORE NDL W CLIP LT Patient: NORA KAUFMAN Exam Date: 11/28/2021 : 1985 Gender:F Ordering : DR GLEN DOMINGUEZ . Admission #: [id number] Family : Order #: [id number] CLICK HERE TO VIEW EXAM RADIOLOGY REPORT PROCEDURE: MAMMOGRAM BIOPSY STEREO CORE COMPARISON: MAMM SCREEN 3D VERONICA CAD, 09/17/2021. INDICATIONS: Breast lump, left breast mass DESCRIPTION: Following informed consent, digital stereotactic mammographic views were obtained to localize the lesion. Multiple vacuum-assisted core biopsies were obtained. Specimen images were obtained to confirm proper sampling. The location of the biopsy was then marked as indicated below. FINDINGS: IMAGING: Mammography. BIOPSY NEEDLE: Mammotome vacuum assisted core LOCATION: Left upper inner quadrant mid breast mass measuring 1.1 x 0.9 cm SPECIMEN TYPE: 6 core samples LOCAL ANESTHETIC: 2 cc 1% buffered lidocaine superficial. 8 cc 1% buffered lidocaine with epinephrine deep. COMPLICATIONS: None. LABORATORY: Tissue samples were sent for evaluation. OTHER: Negative. PATHOLOGY: Pending. An addendum will be added when results are available. CONCLUSION: 1. Technically successful biopsy of left breast mass. 2. Pathology results are pending. An addendum will be added when pathology results are final. This exam was originally dictated in [employer] pacs system on November 28, 2021 Dictated by: Chyna Bee MD on 12/16/2021 at 07:20 Approved by: Chyna Bee MD on 12/16/2021 at 07:22 Normal [facility] Reji 10-31-2021 L -- ---- Specimen: [id number] Received: 10/31/21 Status: BEN Chey Num: [id number] Spec Type: Surgical Subm Dr: Rakesh Young MD Tissues: A Colon Biopsy (RECTAL BX) Procedures: HE Stain/2, Gross/Micro L4 ---- Patient Age/Sex Location Account Attending Physician ---- Nora Kaufman 35/F LAMNANDINI [id number] Rakesh Young MD ---- SPEC NUM: [id number] RECD: 10/31/21 STATUS: BEN CHEY NUM: [id number] JOHN: 10/31/[address] [facility] [address]: Rakesh Young MD ENTERED: 10/31/[address]: oMna Gary SPEC TYPE: Surgical DEPT: MAG [facility]ALEN ORDERED: HE Stain/2, Gross/Micro L4 ORDERED: HE Stain/2, Gross/Micro L4 Pathological Diagnosis Rectum, biopsy: - Colonic mucosa showing focal hyperplastic changes Clinical Information Rectal bleeding Gross Description Received in 10% neutral buffered formalin labeled with the patient's name, number and rectal biopsy are 2 patel tissue fragments, 0.3 cm each. Entirely submitted in one cassette labeled A1. (SM/JS) Microscopic Description Two glass slides with H E stained material have been examined. The microscopic findings support the above pathologic diagnosis. [id number] ---- ---- Specimen: [id number] Received: 10/31/21 Status: KRISSYKisha Guerrier Num: [id number] Spec Type: Surgical Subm Dr: Rakesh Young MD Tissues: A Colon Biopsy (RECTAL BX) Procedures: HE Stain/2, Gross/Micro L4 ---- Patient: Lakshmi Kaufmanmariela Rivera [id number] (Continued) ---- Signed (signature on file) Chuy Franco MD 11/02/[address] [facility] Vital Signs Date Time Vital Sign Value Performing Clinician Faci lity 09-16-2022 08:10-0400 Body height 160.02 cm Crystal Castellanos Drippler Work Phone: ZS-Bpbaoyhzsllsdo-Y [place] Work Phone: 09-16-2022 08:10-0400 Body mass index (BMI) [Ratio] 28.87 kg/m2 Crystal Castellanos Drippler Work Phone: KN-Bujldhjqvznpmn-A [place] Work Phone: 09-16-2022 08:10-0400 Body surface area Derived from formula 1.77 m2 Crystal Castellanos Drippler Work Phone: EV-Edruyqyipqlsvt-Q [place] Work Phone: 09-16-2022 08:10-0400 Body weight 73.94 kg Crystal Castellanos Drippler Work Phone: KU-Plchcikweenzyw-[facility] [place] Work Phone: 08-19-2022 08:21-0500 Body height 160.02 cm Crystal Castellanos Drippler Work Phone: FW-Cvychhpiurrika-[facility] [place] Work Phone: 08-19-2022 08:21-0500 Body mass index (BMI) [Ratio] 29.28 kg/m2 Crystal StovallPluromed Work Phone: FZ-Pivfwrtltbigxs-J [place] Work Phone: 08-19-2022 08:21-0500 Body surface area Derived from formula 1.78 m2 Crystal Claudio Work Phone: QS-Wadlowblajilld-X [place] Work Phone: 08-19-2022 08:21-0500 Body weight 74.98 kg Crystal Claudio Work Phone: OC-Slwiinmsbrrysv-U [place] Work Phone: Encounters Encounter Date Encounter Type Care Provider Facility Start: 05-26-2023 End: 05-27-2023 ambulatory Crystal Claudio Facility:[facility] Start: 05-18-2023 End: 05-18-2023 ambulatory GALINA GUILLEN Not Available Start: 05-13-2023 End: 05-13-2023 ambulatory MELISA MCLEAN Facility:[facility] Start: 10-31-2022 Telephone encounter Irene Neal Work Phone: Endocrinology Comment on above: Appointment (Called pt to r/s 11/[address] Ru Freedman -due to provider being called into a meeting. //Patient was unhappy about appointment r/s and declined rescheduling at this time, will call back office to reschedule. //Pt can be put into virtual est spots on 11/11 or 11/12. ) Start: 09-29-2022 ambulatory Irene Freedman MD Work Phone: [facility] Start: 09-29-2022 Patient encounter procedure Irene Freedman MD Work Phone: Endocrinology Comment on above: Appointment Cancelle d Start: 09-16-2022 Office outpatient vi sit 15 minutes Crystal Claudio Work Phone: ZD-Fpjupfmylnelkt-Ukoesu ke Work Phone: Start: 09-16-[address] Cassius Dong Faci lity:[id number] Start: 09-06-2022 End: 09-06-2022 Subsequent hospital visit by physician [facility] Work Phone: [facility] Ultrasound Comment on above: Insulin resistance [ E88.81] Start: 09-04-2022 End: 09-05-2022 ambulatory Crystal Stovallsuha Facility:[facility] Start: 08-19-2022 ambulatory Ireen Freedman MD Work Phone: Endocrinology Comment on above: Check Up Start: 08-19-2022 Office outpatient ne w 30 minutes Crystal Odell Jasmin González Work Phone: ND-Kftejcdwyyeoal-Kjpkyj ke Work Phone: Start: 06-07-2022 Encounter for genera l adult medical examination without abnormal findings CHARAN CURRIE [facility] Start: 06-05-2022 End: 06-06-[address] GLEN DOMINGUEZ . Facility:[facility] Start: 06-02-2022 End: 06-03-2022 ambulatory CHARAN CURRIE Facility:[facility] Start: 06-02-2022 End: 06-03-2022 Encounter for general adult medical examination without abnormal findings CHARAN CURRIE Facility:[facility] Start: 05-06-2022 End: 05-06-[address] GLEN DOMINGUEZ . Facility:[facility] Start: 11-28-2021 End: 11-28-[address] GLEN DOMINGUEZ . Facility:[facility] Start: 11-07-[address] Cleve Grimes Facility:[id number] Start: 09-24-2021 ambulatory Irene Freedman MD Work Phone: Endocrinology Comment on above: Test Result Procedures Date Procedure Procedure Detail Performing Clinician Start: 09-06-2022 Us soft tissue head & neck real time imge docm Irene Freedman MD Work Phone: section Crystal Gallo lincoln Jasmin Claudio Work Phone: Plan of Treatment Date Care Activity Detail Author Start: 02-20-2023 Influenza vaccination [facility] Start: 12-16-2022 FUV, Provider: Cassius Dong, Status: Pen, Time: 8:15 AM FUV, Provider: Cassius Dong, Status: Hans, Time: 8:15 AM HA-Fgrtawdiznczye-Xag [facility] Work Phone: Start: 08-21-2022 End: 10-21-2022 Hemoglobin A1c in Blood HGB A1C Lab Routine Insulin resistance Multiple thyroid nodules Expected: 08/21/2022, Expires: 10/21/2022 [facility] Work Phone: Comment on above: Expected: 08/21/2022 , Expires: 10/21/2022 Start: 08-21-2022 End: 10-21-2022 Thyrotropin [Units/volume] in Serum or Plasma TSH BLD Lab Routine Insulin resistance Multiple thyroid nodules Expected: 08/21/2022, Expires: 10/21/2022 [facility] Work Phone: Comment on above: Expected: 08/21/2022 , Expires: 10/21/2022 Start: 08-21-2022 End: 10-21-2022 Thyroxine (T4) free [Mass/volume] in Serum or Plasma T4 FREE/FREE THYROX Lab Routine Insulin resistance Multiple thyroid nodules Expected: 08/21/2022, Expires: 10/21/2022 [facility] Work Phone: Comment on above: Expected: 08/21/2022 , Expires: 10/21/2022 Start: 06-22-2022 DEPRESSION ASSESSMENT DEPRESSION ASS ESSMENT [facility] Start: 02-20-2022 Influenza vaccination [facility] Start: 11-08-2013 HPV TESTING HPV TESTING [facility] Start: 11-08-2004 PAP TESTING PAP TESTING [facility] Start: 11-08-2002 Urine microalbumin profile [facility] Start: 11-08-2001 HEPATITIS C SCREENING HEPATITIS C SC REENING [facility] Start: 11-08-2001 HIV SCREENING HIV SCREENING [facility] Start: 1995 Adult depression screening assessment DEPRESSION SCREENING [facility] Start: 11-08-1988 COVID-19 VACCINE (1) COVID-19 VACCIN E (1) [facility] Start: 05-11-1984 COVID-19 VACCINE (#1) COVID-19 VACCI NE (#1) [facility] Start: 1985 HEPATITIS B (1 of 3 - 3-dose series) HEPATITIS B (1 of 3 - 3-dose series) [facility] Start: 1985 Hepatitis B Vaccine (1 of 3 - 3-dose series) Hepatitis B Vaccine (1 of 3 - 3-dose series) [facility] End: 09-20-2023 Us soft tissue head & neck real time imge docm US THYROID/PARATHYROID Radiology Routine Insulin resistance Multiple thyroid nodules 1 Occurrences starting 08/21/2022 until 09/20/2023 [facility] Work Phone: Comment on above: 1 Occurrences starti ng 08/21/2022 until [facility] P[facility] Date Payer Category Payer Medicaid [id number] 2022 Medicaid [id number] 2020 Medicaid [employer] [id number] 2020-Present [phone] [address] [place] [address] Medicaid [id number] 2020 Unknown MONICA HENDERSON SS PPO [id number] 2020-Present [phone] [address] [place] [address] PPO [id number] 2020 Unknown 1985 Unknown [id number] 1985 Unknown [id number] [id number] 1983 Unknown [id number] [id number] 1983 Unknown [id number] [id number] 1983 Unknown [id number] [id number] 1983 Unknown [id number] [id number] 1983 Unknown [id number] [id number] 1983 Unknown [id number] [id number] 1983 Unknown [id number] 2.16.840.1.242929.3.579.2.297 1983 Unknown [id number] [id number] 1983 Unknown [id number] [id number] 1959 Medicaid [id number] 1959 Unknown [id number] Unknown [id number] Social History Date Type Detail Facility Start: 02-24-2018 End: 03-26-2018 Tobacco smoking status NHIS Ex-smoker [facility] End: 06-22-2011 History of tobacco use Current smoker [facility] Start: 02-24-2018 End: 05-30-2020 Cigarettes smoked current (pack per day) - Reported 0.5 [facility] Start: 02-24-2018 End: 03-26-2018 Tobacco use and exposure Smokeless tobacco non-user [facility] Start: 05-20-2021 Alcohol intake Current drinke r of alcohol (finding) [facility] Start: 1985 Sex Assigned At Not on file [facility] End: 06-22-2011 History of tobacco use Cigarette Smoker [facility] Work Phone: Start: 05-30-2020 End: 05-20-2021 Tobacco use panel [facility] National Score (1-10 0), lower number is lower risk Not on file [facility] Clinical Notes 07-23-2022 to 10-31-2022 Telephone Encounter - Jessica Mansfield - 10/31/2022 8:40 AM EDTTelephone Encounter - Tammy Koenig RN - 09/30/2022 4:26 PM Crystal Cash RDMS - 09/06/2022 7:30 AM EDT Note Date & Type Note Facility 10-31-2022 Miscellaneous Notes Called pt to r/s 11/[address] Ru Freedman -due to provider being called into a meeting. Patient was unhappy about appointment r/s and declined rescheduling at this time, will call back office to reschedule. Pt can be put into virtual est spots on 11/11 or 11/12. documented in this encounter [facility] 09-30-2022 Miscellaneous Notes Patient is concerned about ultrasound results from 09/06/2022. Please see patient's message and advise. LEILANI: 05/20/2021 Next visit: 11/07/2022 (rescheduled from 09/29) Thank you! Erinn Koenig RN documented in this encounter [facility] 09-06-2022 History of Presen t illness Narrative Radiology Service Progress Note PATIENT NAME: Nora Kaufman DATE OF SERVICE: September 06, 2022 TIME: 7:52 AM PATIENT IDENTITY VERIFICATION COMPLETED USING TWO (2) IDENTIFIERS: Name and Date of confirmed by patient verbally and Name and Date of confirmed by identification band. FALL SCREENING: Has the patient had 2 falls in the last year or 1 fall with injury or currently using an Ambulatory Assistive Device (Walker, Cane, Wheelchair, Crutches, etc.)? No PATIENT GENDER DATA: Female. status: : No status: N/A PATIENT RELEVANT IMPLANT DATA REVIEWED: Not Applicable RADIOLOGY DEPARTMENT: Ultrasound PERIPHERAL IV DATA: Not applicable SIGNED BY: Crystal Parra RDMS September 06, 2022 7:52 AM documented in this encounter [facility] 08-20-2022 Miscellaneous Notes Please see patient's message and advise if patient should be scheduled with another provider for ultrasound and follow up. Next in office EST visit February 18. LEILANI: 05/20/2021 Thank you! 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 I saw her in July 2022 because for a month ago she started having significant discomfort on that side of her face. Interestingly she changed her position at night and also changed pillows and the discomfort is much less. She also had had some issues with thyroid nodules in the past eventually this was biopsied and was described as being benign. We got a repeat the CT scan of her neck that was done on September 04, 2022. I personally reviewed that scan it really does not show any significant changes from the prior scan that was done back in 2014. 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 The patient thinks that it may be related to some new medications that she takes for control. Of note is that the patient also has multiple thyroid nodules. She had a repeat ultrasound that basically does not show any changes from years ago. She is to follow-up with her note specialist. [facility] Work Phone: 07-23-2022 History of Presen t illness Narrative This patient is a former patient of mine that I have not seen since 2014. 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 Approximately a month ago she started having significant discomfort on that side of her face. Interestingly she changed her position at night and also changed pillows and the discomfort is much less. She also had had some issues with thyroid nodules in the past eventually this was biopsied and was described as being benign. She has not followed up in the past few years. [facility] Work Phone: Chief complaint Narrative - Reported Consultation for left jaw and ear pain [facility] Work Phone: Evaluation note Diagnosis Insulin resistance- Primary Dysmetabolic Syndrome X Multiple thyroid nodules Nontoxic multinodular goiter [facility] Diagnosis Insulin resistance Dysmetabolic Syndrome X Multiple thyroid nodules Nontoxic multinodular goiter documented in this encounter [facility] for referral (narrative)* Diagnostic Procedure Only (Routine) - Pending Review Specialty Diagnoses / Procedures Referred By Susu frankel Referred To Contact US IMAGING Diagnoses Insulin resistance Multiple thyroid nodules Procedures US THYROID/PARATHYROID US SOFT TISSUE HEAD & [place] [address] [place] [address] [facility] Referral ID Status Reason Start Date Expiration Date Visits Requested Visits Authorized [id number] Pending Review Auto-Generat ed Referral 08/21/2022 09/20/2023 1 1 [facility] for referral (narrative)* Diagnostic Procedure Only (Routine) - Closed Specialty Diagnoses / Procedures Referred By Susu frankel Referred To Contact US IMAGING Diagnoses Insulin resistance Multiple thyroid nodules Procedures US THYROID/PARATHYROID US SOFT TISSUE HEAD & [place] [address] [place] [address] [place] [address] Referral ID Status Reason Start Date Expiration Date V isits Requested Visits Authorized [id number] Closed Auto-Generate d Referral 08/21/2022 09/20/2023 1 1 [facility] for visit Narrative* Diagnostic Procedure Only (Routine) - Closed Specialty Diagnoses / Procedures Referred By Susu frankel Referred To Contact US IMAGING Diagnoses Insulin resistance Multiple thyroid nodules Procedures US THYROID/PARATHYROID US SOFT TISSUE HEAD & NECK REAL TIME IM[place], [place] [address] [place] [address] [facility] [address] Referral ID Status Reason Start Date Expiration Date V isits Requested Visits Authorized [id number] Closed Auto-Generate d Referral 08/21/2022 09/20/2023 1 1 [facility] Summary Purpose Family History No Family History Records FoundUnknown Family Member Name Dates Details Family history of colitis: F ather(V18.59, Z83.79) Status:Active Thyroid trouble: Mother Status:Active Unknown Family Member Name Dates Details Family history of colitis: F ather(V18.59, Z83.79) Status:Active Thyroid trouble: Mother Status:Active Advance Directives No Advanced Directives Records FoundNo Advanced Directives Records FoundNo Advanced Directives Records FoundNo Advanced Directives Records FoundNo Advanced Directives Records FoundNo Advanced Directives Records FoundNo Advanced Directives Records FoundNo Advanced Directives Records FoundNo Advanced Directives Records Found Chief Complaint Follow-up regarding a left jaw and ear pain Additional Source Comments Source Comments (unrecognize d section and content) In the event this informatio n is protected by the Federal Confidentiality of Alcohol and Drug Abuse Patient Records regulations: The Federal rules restrict any use of the information to criminally investigate or prosecute any alcohol or drug abuse patient.[facility] the event this information is protected by the Federal Confidentiality of Alcohol and Drug Abuse Patient Records regulations: The Federal rules restrict any use of the information to criminally investigate or prosecute any alcohol or drug abuse patient.[facility] the event this information is protected by the Federal Confidentiality of Alcohol and Drug Abuse Patient Records regulations: The Federal rules restrict any use of the information to criminally investigate or prosecute any alcohol or drug abuse patient.[facility] the event this information is protected by the Federal Confidentiality of Alcohol and Drug Abuse Patient Records regulations: The Federal rules restrict any use of the information to criminally investigate or prosecute any alcohol or drug abuse patient.[facility] the event this information is protected by the Federal Confidentiality of Alcohol and Drug Abuse Patient Records regulations: The Federal rules restrict any use of the information to criminally investigate or prosecute any alcohol or drug abuse patient.[facility] Care Teams (unrecognized sec tion and content) Reliner Relationship Specialty Start Date End Date Fabi Kang [address] [place] [address] PCP - General Family Practice 02/15/18 Reliner Relationship Specialty Start Date End Date Fabi Kang [address] [place] [address] PCP - General Family Medicine 02/15/18 Reliner Relationship Specialty Start Date End Date Fabi Kang [address] [place] [address] PCP - General Family Medicine 02/15/18 Reliner Relationship Specialty Start Date End Date Jorge Luis Fabi Santiago [address] [place] [address] PCP - General Family Medicine 02/15/18 Reliner Relationship Specialty Start Date End Date Fabi Kang NP [address] [place] [address] PCP - General Family Medicine 02/15/18 INFORMATION SOURCE (unrecogn ized section and content) DATE CREATED AUTHOR 11/03/2021 [facility] DATE CREATED AUTHOR AUTHOR'S ORGANIZ ATION 09/18/2022 [facility] DATE CREATED AUTHOR AUTHOR'S ORGANIZ ATION 11/02/2022 [facility] DATE CREATED AUTHOR AUTHOR'S ORGANIZ ATION 11/02/2022 [facility] DATE CREATED AUTHOR AUTHOR'S ORGANIZ ATION 12/17/2022 [employer] DATE CREATED AUTHOR AUTHOR'S ORGANIZ ATION 05/15/2023 [facility] DATE CREATED AUTHOR AUTHOR'S ORGANIZ ATION 05/18/2023 [facility] DATE CREATED AUTHOR AUTHOR'S ORGANIZ ATION 05/26/[address] [facility] DATE CREATED AUTHOR AUTHOR'S ORGANIZ ATION 05/28/2023 [facility] Reason for Visit (unrecogniz ed section and content) Reason Comments Appointment Called pt to r/s 10/[address] Ru Freedman -due to provider being called into a meeting. Patient was unhappy about appointment r/s and declined rescheduling at this time, will call back office to reschedule. Pt can be put into virtual est spots on 11/11 or 11/12. FOR RECORDS PERTAINING TO PATIENTS WHO ARE OR HAVE BEEN ENROLLED IN A CHEMICAL DEPENDENCY/SUBSTANCEABUSE PROGRAM, SOME INFORMATION MAY BE OMITTED. This clinical summary was aggregated from multiple sources. Caution should be exercised in using it in the provision of clinical care. This summary normalizes information from multiple sources, and as a consequence, information in this document may materially change the coding, format and clinical context of patient data. In addition, data may be omitted in some cases. CLINICAL DECISIONS SHOULD BE BASED ON THE PRIMARY CLINICAL RECORDS. [facility] [employer] [facility]. provides no warranty or guarantee of the accuracy or completeness of information in this document.
== END 2023-06-12 12:47 | disposition home or self-care (01) ==
LOC: MAMMO 12:46
PROVIDERS: Visit Provider Physician Assistant
DX: Z12.31 Encounter for screening mammogram for malignant neoplasm of breast (principal); Z80.3 Family history of malignant neoplasm of breast; Z80.1 Family history of malignant neoplasm of trachea, bronchus and lung
CPT/HCPCS: 77063; 77067

== ENCOUNTER 2024-06-13 20:40 | Outpatient (REF) | payer BC, SELFPAY ==
--- OUTSIDE RECORDS SUMMARY | 2024-06-13 20:45 | XMS_ITS | CCD ---
Author Organization [facility] Care Team Providers Care Medical Imaging Technologist Name Role Phone Fabi Kang Primary Care Provider Crystal Claudio Unavailable Unavailable Unavailable Fabi Kang Primary Care Provider Cornelio, Dr. Cleve Gaspar Primary Care Unavailab le Glen Fuller Referring Unavailable Petek, Ms. Vencesysrobin Odell Attending Unavailab le Lavertu, Dr. Hammonds Attending Unavailable Lavertu, Dr. Hammonds Referring Unavailable Gonsuha, Ms. Crystal Gordon Primary Care Unavailable Lydiaertu, Dr. Hammonds Attending Unavailable Self, Referral Referring [...] Unavailable KARASIK ., DR MOLINA Consulting Unavailshari BEE, DR CHYNA Maya Consulting Unavailable CHARAN CURRIE Admitting Unavailable KUSHCHARAN YANG Attending Unavailable GONYA, CRYSTAL Primary Care Unavailable KUSHCHARAN Consulting Unavailable KARASIK ., DR MOLINA Admitting Unavailabl e KARASIK ., DR MOLINA Attending Unavailabl e GONYA, CRYSTAL Primary Care Unavailable KARASIK ., DR MOLINA Consulting Unavailabl e CRISTAL, DR CHYNA Maya Consulting Unavailable Jorge Luis MANAGER PHILOSOPHYFabi Primary Care Provider VINAY MANAGER PHILOSOPHY, MELISA Castellano Attending Unavailable PCP, Unknown Primary Care Unavailable ASHLEY GUILLEN Attending Unavailable MELISA MCLEAN Attending Unavailable Gonya, MANAGER PHILOSOPHY-C Crystal Primary Care Provider Gonya, MANAGER PHILOSOPHY-C Crystal Attending Provider Gonya, Crystal Attending Unavailable Gonya, Crystal Primary Care Unavailable Gonya, Crystal Admitting Unavailable Adrián Zavaleta Unavailable RamosNora Unavailable Gonya, Crystal Primary Care Unavailable Gonya, Crystal Attending Unavailable Gonya, Crystal Primary Care Unavailable Gonya, Crystal Attending Unavailable Gonya, Crystal Primary Care Unavailable Gonya, Crystal Attending Unavailable Gonya, Crystal Primary Care Unavailable Gonya, Crystal Attending Unavailable Gonya, Crystal Primary Care Unavailable Gonya, Crystal Attending Unavailable Gonya, Crystal Primary Care Unavailable EMLEY Correia Admitting Unavailable EMELY Correia Attending Unavailable Gonya, Crystal Attending Unavailable Gonya, Crystal Primary Care Unavailable Gonya, Crystal Admitting Unavailable Gonya, Crystal Primary Care Unavailable Gonya, Crystal Attending Unavailable Gonya, Crystal Admitting Unavailable Gonya, Crystal Primary Care Unavailable Gonya, Crystal Attending Unavailable Gonya, Crystal Admitting Unavailable Unavailable Primary Care Provider Unavailabl e Allergies Allergy Classification Reported Allergen(s) Allergy Type Date of Onset Reaction(s) Facility (11 sources) Codeine; Translations: [codeine] Drug Allergy 02-02-20 13 Hives, Vomiting, Other: See Comments, Nausea And Vomiting [facility] (2 sources) Penicillins; Translations: [penicillins] Drug Allergy Hives, Vomiting, Other: See Comments [facility] (2 sources) Penicillins; Translations: [Penicillins] Allergy to drug (finding) MG-Otolaryngolo gy-Silvestre Work Phone: (4 sources) Penicillins Drug Allergy Hives, Vomiting, Other: See Comments [facility] (1 source) Codeine Drug Allergy 02-02-20 13 [facility] (1 source) Penicillins Drug allergy (disorder) 02-02-20 13 [facility] (1 source) Codeine Drug Allergy 04-25-20 [facility] (1 source) Penicillin Drug Allergy 04-25-20 [facility] (1 source) Unable to Assess Drug allergy (disorder) 01-16-20 18 [facility] Repository (2 sources) Codeine Drug Allergy Unknown [facility] Other (2 sources) Penicillin V Drug Allergy Unknown [facility] Other (3 sources) Penicillins Drug Intolerance 02-02-20 13 Rash, Hives, Nausea And Vomiting [facility] Medications Current Medications Medication Drug Class(es) Dates Sig (Normalized) Sig (Original) Ascorbic Acid (2 sources) Vitamin C Vitamin C Active bifidobacterium infantis 4 mg oral capsule (2 sources) Start: 09-26-2023 Probiotic Product (Align) 4 MG capsule 09/26/2023 Active busPIRone hydrochloride 7.5 mg oral tablet (2 sources) Start: 01-20-2024 busPIRone (Buspar) 7.5 MG tablet 01/20/2024 Active cyclobenzaprine hydrochloride 5 mg oral tablet (3 sources) Muscle Relaxant Start: 05-13-2023 take 1 tablet by mouth three times daily as needed cyclobenzaprine (Flexeril) 5 MG tablet Take 5 mg by mouth 3 (three) times a day as needed. 05/13/2023 Active ferrous sulfate 325 mg delayed release oral tablet (2 sources) Start: 03-14-2024 ferrous sulfate 325 (65 Fe) MG EC tablet 03/14/2024 Active Magnesium (2 sources) Magnesium 200 MG as directed Orally Active naproxen 500 mg oral tablet (3 sources) Nonsteroidal Anti-inflammatory Drug Start: 05-13-2023 take 1 tablet by mouth in the morning naproxen (Naprosyn) 500 MG tablet Take 500 mg by mouth in the morning and 500 mg in the evening. Take with meals. 05/13/2023 Active One A Day Women 50 Plus (2 sources) One A Day Women 50 Plus Active predniSONE 10 mg oral tablet (3 sources) Start: 05-13-2023 take 4 tablets by mouth once daily, then take 3 tablets by mouth once daily, then take 2 tablets by mouth once daily, then take 1 tablet by mouth once daily predniSONE (Deltasone) 10 MG tablet Take 4 tablets by mouth daily for 3 days, then 3 tablets daily for 3 days, then 2 tablets daily for 3 days, then 1 daily for 3 days. 05/13/2023 Active Completed/Discontinued Medications Medication Drug Class(es) Dates Sig (Normalized) Sig (Original) plenvu 140 gm solution reconstituted (2 sources) Osmotic Laxative, Vitamin C Start: 12-27-2020 Plenvu 140 GM dose 1 pouch at 4pm, dose 2 pouch A & B at 11pm Orally BID for 1 days BIN:[id number] PCN: [id number] GROUP:[id number] ID:[id number] Dec, Not-Taking/PRN Ethinyl Estradiol / Ferrous fumarate / Norethindrone [...] Comment on above: Take 1 tablet by marcos once daily. 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 Disorders of teeth and jaw (2 sources) Jaw pain; Translations: [Jaw pain] Episodic Esophageal disorders (2 sources) Gastroesophageal reflux disease; Translations: [Gastro-esophageal reflux disease without esophagitis] Chronic Gastrointestinal hemorrhage (2 sources) Hematochezia; Translations: [Melena] Episodic Headache; including migraine (2 sources) Pain in face; Translations: [Headache] Episodic Hypertension with complications and secondary hypertension (2 sources) Hypertension secondary to endocrine disorder; 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 Menstrual disorders (2 sources) Menometrorrhagia; Translations: [Excessive and frequent menstruation with irregular cycle] 06-13-2024 Chronic Nervous system congenital anomalies (7 sources) Meningocele; Translations: [Spina bifida, unspecified] 03-26-2018 Chronic Other circulatory disease (2 sources) H/O: hypertension; Translations: [Personal history of other diseases of circulatory system] Episodic Other ear and sense organ disorders (4 sources) Otalgia, left ear; Translations: [Left ear pain] Episodic Other gastrointestinal disorders (2 sources) Constipation; Translations: [Constipation, unspecified] Episodic Other lower respiratory disease (2 sources) Lung mass; Translations: [Solitary pulmonary nodule] Episodic Other nervous system disorders (2 sources) Chronic pain; Translations: [Other chronic pain] Chronic Other nervous system disorders (1 source) Other chronic pain Chronic Other nutritional; endocrine; and metabolic disorders (2 sources) Insulin resistance; Translations: [Metabolic syndrome] Chronic Other screening for suspected conditions (not mental disorders or infectious disease) (9 sources) Inconclusive mammogram; Translations: [Encounter for screening for malignant neoplasm of cervix] Onset: 2 Episodic Residual codes; unclassified (2 sources) Family history of inflammatory bowel disease; Translations: [Family history of other diseases of the digestive system] Episodic Spondylosis; intervertebral disc disorders; other back problems (13 sources) Degeneration of lumbar intervertebral disc; Translations: [Other intervertebral disc degeneration, lumbar region] Chronic Spondylosis; intervertebral disc disorders; other back problems (11 sources) Radiculopathy, lumbar region; Translations: [Chronic low back pain] Onset: 3 Episodic Thyroid disorders (15 sources) Multinodular goiter; Translations: [Nontoxic multinodular goiter] 03-26-2018 Chronic Thyroid disorders (2 sources) Disorder of thyroid gland; Translations: [Unspecified disorder of thyroid] Episodic Unclassified (1 source) Low back pain, unspecified; Translations: [Low back pain, unspecified] Onset: 3 Past or Other Problems Problem Classification Problem [...] Translations: [HYPERTROPHY OF UTERUS] Onset: 06-05-2022 Episodic Residual codes; unclassified (1 source) Other [...] Test Name Value Interpretation Reference Range Facility Coding Summaryon 04-05-2024 Coding Summary HTMLBase 64 IdzkelcwLFf3wIo+PGhlY WQ+HW9WWOGmW57cjNJabH 7mN3XUWPyYGkmqXXDKFHq IIhRrdzTgOV4pdJFaYGLy IC8+YZ8gQVIpYmhpzHWqe 1N6gAF0Y84zla3qXYhhsV V5KXLnTaDhaubfu8gsxXs 6IDcuNmluOyBt VIQkkV92SKA0sJ91Eg48g IQfmFUlg1wflFh1ZnHnOD IvZRR4dMpoRNfyb8AsNMU hR40xvDIgk0G6 QZEjzKictKJeGpJmqJD7c Z6uHLnbxzjlf5ppwgmiXm o2vp07gZHrs3M0tCK6Q0B ayrO3MVYwoBPx GcxcjCDCjW4eajhdr7gfy yreLcKvAHQsGJk8WEz2HM SjcUdsAdKaNR16YEY0EMC bmdFcB6UmWEYt jNhnFlA1p9J2Nh8YI8SBI bonM6YKZHVIGSbieHD+PC 51ho61R4OlIpexVmy5RSN zBMO1dAF6iH1i PCXaEElhn7Y6bSW7A0Zug xSjmo5ma9qaRAQqGIdqS1 4izFTnj9A0IPIfbDT2GBP pjWgdQbNaiA03 Oyc+EVHzjXylk5ZuWekrs 5vmy9ufxLw2FbblNYMkpb RblNmrQUB7e5DfZy0xNWW jrGW4uJT3mF0w DtTnPwG5SSakH572CeXzx KLgQvnxR10kY6JzjVD+PH TrCge5IYXdwGizLZ7hN5O hZGRpbmctbGVm fPmmFA2uKADoyggsKBLaz A8fJMIjZ3k3IdPfLmX3EJ vpI7LxTZWjyipgLg56uU7 mIxMyUhV8TSto T1IfgkG7XNCmmRLbLPolJ EN9U41hf7J8XFLuTXIvSL B4sAB2nS2ecLnercgaxHR mdDsgdmVydGlj LCqgXOnjE442EWWyoTxbB kNvZGluZyBEYXRlOiAgMT AvMTUvMjAyNDwvdGQ+PHR dHNO3vPypPPZt rNPmKOsoCm6aqDojcJhcO P4lXCIgdqzrUGUxiA2dKX ZvrJIodPqsYB9yCGEvtfq xk063SqVqRVB6 MTRvpNSpG8BwzZ4jIkIeT VZaGCTkA6NavKSvRDltB1 30KPgwGqW6OJNgjtHyY6T sLWFsaWduOiB0 v3V8Cd2Sn2WblkksK1Hri DEvPjBrIbjmCYu1P9ZgYu wvdHI+IB11SETpSR44ZCa 8HPP9eYjeZJga CJFcM4ZjtV5tFeCxGYMcD GRkOyc+PHRhYmxlIHdpZH RoPScxMDAlJyBzdHlsZT0 gUf8vDVIiLIBy dCscmHZmSjApr8yoRJJuL HusCO0csEspQ5XowQT1FU Sfq2r8Cv76I91lB5TqlNQ +STEsgGK6hQQ1 dI8bZvKgBpT3UBtqR140L mBxpJYaGdyir6ktg7oehO g7UvC5HAVbhzNqyKheMZZ 2k4XeAx00A26a IHdpZHRoPSIxNSUiIHZhb Prrkj4bfB2pCj9+PGNvbC K1hMJ8pC7fZkUwZkQ9HPm qF502OuIgvGNz Ekdcy4xdi4mfeYt2NrSlF VHobzBbvHyaZJK8o0QlEw 88Z8LrjJywn3DmRla0tj7 3cGQtu7K9zRL5 L2TtJRMcxkkfgPWceGgeX H6jAKBbwdaeQAUanE5sAE CuZ0j2CuYiUrG0WAizZ6P oufA9KSMnhMAc XPHmzHDHlB4uoemwg8iem ioiDxZkVLWmUFt4XZx6BY QvaUcfDxMaLES3MdY7KQX 8zWPhgJ3lpAiq vqommI0yMyu+VUV4zEGsy DXXYK8cRchztBB+PHRkIH C6nPkxGRlgGEIwpN9lWKF zJ7t9ZgBqFxV3 CKofN2SzvsZ5ASQvrNCrQ AZizBUGvP0jhthnf4urzs fsWfDqKWJcPAa8YRs3GGH saWduOiBsZWZ0 SiV4UZD9tCKejW9bvTtat nvjfE1nMyg+QmlydGggRG B5YOb3X8RxIgd4OXNeaGs bFH7vkHGtZSqc Vq4wbEaxlVcoJO0hISVze yzwd109YoQpx0toSNSzwV PtZPndLFS4S97ji7E5HAU pDKHeULX6uGR1 sD3uvEpndzxohWPvnHkui bQpiJekVZkuOCwlM950CU ZwtSzqQtXjHSc2T3PdDvo 8FUSbdIyyWV9k nEUuRKskPr7izOwldBtmX J9kZIQaguagu177GrQmg1 xdABXriVVbHEbuAQW7C20 ka2R3KHNlFCTl WME1xDF9jK9zwVwremchw GVmdDsgdmVydGljYWwtYW jbT286VZYvyTtvOvZeaBx 4F0ArVzn4XCHh cPazTM7maTAiUApdKi2my YdfnAebUA8sPHJcbdrhl8 65AyNas4jgACXgrWZvOMs kEPZ4X17du9W3 IFHqBFViHTA6bXZ3iZ7if GlnbjogbGVmdDsgdmVydG ulXYasNRpnU752EQYhtGq nPlBhdGllbnQg TZyvLQi4N7ZwYoyseXA+P L86JKSlUR77bWXoqWMvs9 koePz1NtZmBZFeYQV5pYu xBEngq9TcSZAg L15uyQDmi3I3LOJxnSajv IJfRzUxaKV3dY9qNYdgco vih1brvmxiOltev1gkmf3 8mD92O74iFPyx ZHRoPSIzMCUiIHZhbGlnb m8wdQ4wCz6+UNGelCM5wS E4wG4hXLFoXaL0RFzaW53 9InRvcCIvPjxj q7jhs3mdkLh0MwE5NPLss uThtJgiFZE6l4IaCp08X1 9sIHdpZHRoPSIyMCUiIHZ crPzxif4fpF6o Ii8+BYLvdIP2lJZ1cZ6jD iJwYqH0IGbuA542VnKktB JbTjazD48yW2AeuOP+PHR bMbr6LXSrkOrr JO8dnHUxPFyfFh7tBAW9A vEdMfLoQElgL8HqYURnjj ndazusrPC7RINhXHHebL9 1Dz6tqTjxZWNh cSDFlR0lryaku7oaxgboJ fIgVIQeSDa8GFr5HZXpgT hpXeQzKDT0AzB9GUD1wWP taQ6ivXvyrstt lF7hM3KtHJZrzcwpLo42i Z7yVjNrXbZ8OHcnXvl+U1 wCT3plIPbFH5RHQ5TaYBk vdGQ+PHRkIHN0 nZogUScxWOWvjQ4ePXTlT 8x6HoBlDzR6QBtqR2QbYK ChpvejMx14lX6sCnIyNrM 6CYgbF6NmoqD5 XRXobFHdYLrwZGQ6E11fu 5C6DZQeQWAfGEM0dFW7mV 1hbGlnbjogbGVmdDsgdmV ydGljYWwtYWxp E201HRGsoKyyXyZ2AvFoL zV7CKL9T0DgNwv3RYXeuF tlEQ9seDSiIQkbMy1wlQm jkMzgGE4iMSLv cilaITXgmT1iWGVsjWHmo HgqNM4rWSIuqfbud664Ik FtOFC2UTQvmZGpC2UbwE7 yOiAjMDAwMDAw S6IksOSyEVbwK131PKknR lT6LYGxfxLsK2IdBJPntH soYlH5v7Y0Hr09ITWZGWC yczwvdGQ+PHRk AUF2kAunFTtbPXIurH2kD YWfF7b0PiDeBxO7BIwmH6 KhNPPkjefzWw53kT6oJkU pGjL1OZouV5Mo umQ0KPPagEWzZVfkWBE5X 45my9X3IHCkOGWiNNT9tK J8gW8usHfjpletwPEfcBo gdmVydGljYWwt MYcfE154JHOjaSbpHtBUR UFMRTwvdGQ+BEPrXKW9oT uhNJliZOIiwI7vCSKdD8h 2GjZmIeB1OUvt T2LnGEIjqtouHy03kZ8tX mTeEqV5DOuvM1SuzxV2WI NebRWcGZibSIC6V47pi8S 9MJUiMEZeQRK5 bFZ4kZ7sgPgbjjpbfHZeb DsgdmVydGljYWwtYWxpZ2 62RPPdwCupRv9XDJ40BE5 0T7NzFzoijULf bGU+PHRhYmxlIHdpZHRoP EpmDVHrUzSmlTkdUM5dTz 9yZGVyLWNvbGxhcHNlOiB jc3jeCKArURim WZ3jtVvfN9NvoDM8IVOzu 1i6Iv36J33nE6HnnXT+PG EouJH1fMD9sR8bXfVfEeR 0IPkkT094BzGx zJKcYgmlc7gki5sbxYj6B eLzZOPkxhOhgBvxHBX3j3 LyPj08W78aEImfLYSmHHL yMCUiIHZhbGln yg6kgX4fUm6+GQIhdTO5o TK4oF4vVpHoLyV2KArhR9 89NsUikOZpZxyuZ41gS6E vdXA+PHRyPjx0 YBMlpPbpVM8olNUwFElxQ e5xTYD7BqHuFgUlPUxoN3 AtTRBnocofjlunfRZ4QRT iRKIaoS84Fj2n tQwnNs6xINKkZIN3RLVjg PUeX3EubM4lPnNxCQQgOY McT6CdzIFrREryC882VEd kSqM7ROTwdjEt I6IlMZZueUgqUuW3n9Y7K z9TzBtkfKFuYJ3nEcWsFW j5R2VzJpa4TSPnxCrxDX0 gzFYtEWtcCl6o gGklqKacPS3sOZArueucy 337LwZyk4roFOQhfRPsPE yxIEJ0B54er1T6NHNpUZR tYYY0rFS1rZ9y bGlnbjogbGVmdDsgdmVyd FqeBQpyCMxyZ253GHGdzB ruTuKTOhj3W4ZjIiu2CCF tkKhvEG2uiPSy RAdcYy7fzLpmlBpyUP1yG ZLgkwehi265FnZqe0bsFN SshVUeCOweNLW7U28vr8W 0JPSwGYFnTSN0 oLI6qQ7klCnzagyiaBNll DsgdmVydGljYWwtYWxpZ2 94XEYubAxpJx8FXqc9G4V bDsi5FWXlhHca VX1osTYgTYrjAu7lbOxyc PzfAB6zBEJwjlwkq824At Gzi4avMWFenIWoPXkrOUV 9L40bg4E5PFZs KYOzQJT8bKJ4vN7kySwte jogbGVmdDsgdmVydGljYW zrZUylC931SFSguZlnBlG heWVyOjwvdGQ+ NA68mv89U2EfOmsxMqa2F MZyMGC7aOD2gZ3mVRNcIY oqo1X0iDJ6L1VgseSroa5 mp3diHZBpKTnh Y29 (more content not included)... Normal [facility] Reminder Messageson 03-16-20 24 Reminder Messages - From: Crystal Claudio APRN, CNP To: [facility] ([facility]); Sent: 03/16/2024 13:20:53 EDT ! Show up: 03/16/2024 13:20:53 EDT Subject: Results Follow Up Actions: Call the ordering provider with results Due Date/Time: 03/17/2024 13:20:00 EDT Reminder Comments: neg Results: Date Result Name Value Ref Range 03/14/2024 7:36 ASHLYN Direct LC Negative (Negative - ) left detailed message for patient of test result with office contact information for any questions. Normal [facility] ASHLYN w/Reflex if Positive LCo n 03-15-2024 ASHLYN Direct LC Negative Invalid Interpretation Code Negative [facility] Comment on above: Result Comment: Perf ormed At: [facility] [address] [id number] Marija Walker PhD Ph:[phone] Performed By: #### 1 [id number] ####[facility] (DEFAULT)[address] [place] [address] Hemogram Standardon 03-14-20 Erythrocyte distribution width (RBC) [Ratio] 14.3 % Normal 11.5-15.0 [facility] Comment on above: Performed By: #### 1 [id number], [id number] ####[facility] (DEFAULT)[address] [place] [address] Hematocrit (Bld) [Volume fraction] 34.8 % Normal 33.7-40.4 [facility] Comment on above: Performed By: #### 1 [id number], [id number] ####[facility] (DEFAULT)[address] [place] [address] Hemoglobin (Bld) [Mass/Vol] 11.5 g/dL Normal 11.3-15.9 [facility] Comment on above: Performed By: #### 1 [id number], [id number] ####[facility] (DEFAULT)[address] [place] [address] MCH (RBC) [Entitic mass] 28 pg Normal 24-34 [facility] Comment on above: Performed By: #### 1 [id number], [id number] ####[facility] (DEFAULT)[address] [place] [address] MCHC (RBC) [Mass/Vol] 33 g/dL Normal 26-37 [facility] Comment on above: Performed By: #### 1 [id number], [id number], [id number] ####[facility] (DEFAULT)[address] [place] [address] MCV (RBC) [Entitic vol] 84 fL Normal 81-100 [facility] Comment on above: Performed By: #### 1 [id number], [id number], [id number] ####[facility] (DEFAULT)[address] [place] [address] Platelet 248 x10 Normal 138-427 [facility] Comment on above: Performed By: #### 1 [id number], [id number], [id number] ####[facility] (DEFAULT)[address] [place] [address] Platelet mean volume (Bld) [Entitic vol] 8.7 fL Normal 6.3-10.2 [facility] Comment on above: Performed By: #### 1 [id number], [id number], [id number] ####[facility] (DEFAULT)[address] [place] [address] RBC 4.13 x10 Normal 3.70-5.30 [facility] Comment on above: Performed By: #### 1 [id number], [id number], [id number] ####[facility] (DEFAULT)[address] [place] [address] WBC 7.5 x10 Normal 3.5-10.5 [facility] Comment on above: Performed By: #### 1 [id number], [id number], [id number] ####[facility] (DEFAULT)[address] [place] [address] Iron Profileon 03-14-2024 Iron [Mass/Vol] 37.0 ug/dL Normal 28.0-170.0 [facility] Comment on above: Performed By: #### 1 [id number], [id number], [id number] ####[facility] (DEFAULT)[address] [place] [address] Iron Sat 9 % Low 20-55 [facility] Comment on above: Performed By: #### 1 [id number], [id number], [id number] ####[facility] (DEFAULT)[address] [place] [address] TIBC 415 mcg/dL High 250-400 [facility] Comment on above: Performed By: #### 1 [id number], [id number], [id number] ####[facility] (DEFAULT)[address] [place] [address] Transferrin [Mass/Vol] 296.3 mg/dL Normal 192.0-382.0 [facility] Comment on above: Performed By: #### 1 [id number], [id number], [id number] ####[facility] (DEFAULT)[address] [place] [address] Reminder Messageson 03-14-20 Reminder Messages - From: Crystal Claudio APRN, CNP To: [facility] [place] ([facility]); Sent: 03/14/2024 08:31:46 EDT ! Show up: 03/14/2024 08:31:46 EDT Subject: Results Follow Up Actions: Call the patient with result(s) Due Date/Time: 03/15/2024 08:31:00 EDT Reminder Comments: is she on iron supplements Results: Date Result Name Ind Value Ref Range 03/14/2024 7:36 Iron Level 37.0 mcg/dL (28.0 - 170.0) 03/14/2024 7:36 TIBC ((H)) 415 mcg/dL (250 - 400) 03/14/2024 7:36 Iron Sat ((L)) 9 % (20 - 55) 03/14/2024 7:36 Transferrin 296.3 mg/dL (192.0 - 382.0) 03/14/2024 7:36 WBC 7.5 x103/mcL (3.5 - 10.5) 03/14/2024 7:36 RBC 4.13 x106/mcL (3.70 - 5.30) 03/14/2024 7:36 Hgb 11.5 gm/dL (11.3 - 15.9) 03/14/2024 7:36 Hct 34.8 % (33.7 - 40.4) 03/14/2024 7:36 MCV 84 fL (81 - 100) 03/14/2024 7:36 MCH 28 pg (24 - 34) 03/14/2024 7:36 MCHC 33 gm/dL (26 - 37) 03/14/2024 7:36 RDW 14.3 % (11.5 - 15.0) 03/14/2024 7:36 Platelet 248 x103/mcL (138 - 427) 03/14/2024 7:36 MPV 8.7 fL (6.3 - 10.2) Patient states she does not take anything for iron at this time. States she was on something in past for 1 month from office, however had constipation issues so stopped it. Is willing to take an iron supplement if she is able to have something prescribed for constipation. From: Bailey Landon MA ([facility] ([facility])) To: Crystal Claudio CNP; Sent: 03/14/2024 08:43:26 EDT Show up: 03/14/2024 08:43:00 EDT Subject: RE: Results Follow Up From: Crystal Claudio APRN, CNP To: [facility] ([facility]); Sent: 03/14/2024 12:24:58 EDT Show up: 03/14/2024 12:24:00 EDT Subject: RE: Results Follow Up ferrous sulfate 325mg daily take 100mg colace daily---this is OTC repeat iron profile and ferritin level in 2 months patient notified, voiced understanding. lab orders placed for April 2024, script proposed. Normal [facility] Patient Handouton 02-10-2024 Patient Handout Immunology Fatigue If you have fatigue, you feel tired all the time and have a lack of energy or a lack of motivation. Fatigue may make it difficult to start or complete tasks because of exhaustion. Occasional or mild fatigue is often a normal response to activity or life. However, long-term (chronic) or extreme fatigue may be a symptom of a medical condition such as: ? Depression. ? Not having enough red blood cells or hemoglobin in the blood (anemia). ? A problem with a small gland located in the lower front part of the neck (thyroid disorder). ? Rheumatologic conditions. These are problems related to the body's defense system (immune system). ? Infections, especially certain viral infections. Fatigue can also lead to negative health outcomes over time. Follow these instructions at home: Medicines ? Take [id number] and prescription medicines only as told by your health care provider. ? Take a multivitamin if told by your health care provider. ? Do not use herbal or dietary supplements unless they are approved by your health care provider. Eating and drinking ? Avoid heavy meals in the evening. ? Eat a well-balanced diet, which includes lean proteins, whole grains, plenty of fruits and vegetables, and low-fat dairy products. ? Avoid eating or drinking too many products with caffeine in them. ? Avoid alcohol. ? Drink enough fluid to keep your urine pale yellow. Activity ? Exercise regularly, as told by your health care provider. ? Use or practice techniques to help you relax, such as yoga, tammy chi, meditation, or massage therapy. Lifestyle ? Change situations that cause you stress. Try to keep your work and personal schedules in balance. ? Do not use recreational or illegal drugs. General instructions ? Monitor your fatigue for any changes. ? Go to bed and get up at the same time every day. ? Avoid fatigue by pacing yourself during the day and getting enough sleep at night. ? Maintain a healthy weight. Contact a health care provider if: ? Your fatigue does not get better. ? You have a fever. ? You suddenly lose or gain weight. ? You have headaches. ? You have trouble falling asleep or sleeping through the night. ? You feel angry, guilty, anxious, or sad. ? You have swelling in your legs or another part of your body. Get help right away if: ? You feel confused, feel like you might faint, or faint. ? Your vision is blurry or you have a severe headache. ? You have severe pain in your abdomen, your back, or the area between your waist and hips (pelvis). ? You have chest pain, shortness of breath, or an irregular or fast heartbeat. ? You are unable to urinate, or you urinate less than normal. ? You have abnormal bleeding from the rectum, nose, lungs, nipples, or, if you are female, the vagina. ? You vomit blood. ? You have thoughts about hurting yourself or others. These symptoms may be an emergency. Get help right away. Call 911. ? Do not wait to see if the symptoms will go away. ? Do not drive yourself to the hospital. Get help right away if you feel like you may hurt yourself or others, or have thoughts about taking your own life. Go to your nearest emergency room or: ? Call 911. ? Call the National Suicide Prevention Lifeline at or 478. This is open 24 hours a day. ? Text the Crisis Text Line at 579630. Summary ? If you have fatigue, you feel tired all the time and have a lack of energy or a lack of motivation. ? Fatigue may make it difficult to start or complete tasks because of exhaustion. ? Long-term (chronic) or extreme fatigue may be a symptom of a medical condition. ? Exercise regularly, as told by your health care provider. ? Change situations that cause you stress. Try to keep your work and personal schedules in balance. This information is not intended to replace advice given to you by your health care provider. Make sure you discuss any questions you have with your health care provider. Document Revised: 03/31/2022 Document Reviewed: 03/31/2022 [employer] Patient Education ? 2022 [employer]. [facility] Outside Recordson 10-30-2023 Outside Records [id number] [email or web address] [facility] Coding Summaryon 10-05-2023 Coding Summary HTMLBase 64 NmqkwvpkLYe8iHa+PGhlY WQ+WI3NHEKyG39fyPKacZ 3pI9SNYRiDRworTUOAQUm IYzZzslIxSU0wsQMvTKAk IC8+IK6fZXMsHishdHZqq 4O7yBT8L21tsv3hKDvcbJ G3TCFxGgAnhoyao4eguWx 6IDcuNmluOyBt OPQwoV52ZBW0aF43Ny06d LUanHIxu2mthYu3ZxMeVX GrCCM1iRdhXMssn3WpHTG xM30lhBEkj4U9 GVAvkHtftENoSdRtzEX4z Z5qNPzlyavxq0lkbtsoFx d7fn12wHPrf8F2wJX9B6S jzrA6QPHunKGi JgyqoKSUhN9oicwko7cpn qbmUmGuCNLmQFx4QZu8FP VqrFmjApPwIY56EWS1EUW myfOlW2XsKDEd gJsnNnQ0r8N4Hg3MW0TGK ropG8OIADGCDLmpiST+PC 65vc17Z5JfIvixBge5ZWC vIPO3kLX5gP4y CURsEDprs1B8sKO7F1Eni mJfvg8bm0tnBZZpKVbmK5 4aqMHsa9N7KVDlaXB5XWM wxAzxRrAoqY68 Oyc+OTStaQfeg0DfYfmwh 0uvz6lsfBl2WabsHDMlkz ZcaPldWJO6v0CqWd6iTUR sgWN1lFZ7rU1c PbPcIrE6UMgdJ737EiMpx OFrVqozQ55fE7LodTR+PH TsCxy5XYVeeVpoBT0qQ1Q hZGRpbmctbGVm vDnmHN6tJJSqhiwaWXUhs I7rUZXeG7v2AcHqEcH6HD pwF4YuDXMoigbvQw22aM7 fTvAeAoZ0ANhx A3SakyN3MOLhtHLfXYrpH YP2S03ou5H9DOVsVPGrYC I7zEO8cG3nxFakilpspHZ mdDsgdmVydGlj KGgcQVljS237KMJahDghN kNvZGluZyBEYXRlOiAgMD QvMTUvMjAyNDwvdGQ+PHR eJFU8bTenVZMd jXAeMMrhGg6reNadqRtmV E8bDXJlbzffTCLpzW7xMF IuaUMgmCdmCJ8pWKBazkh yx234TwKpOUG5 SWNreDDvR7DxmV8zTkWyU DPmJMPxJ4MrnNBuGDodG6 43FLukYmW8MAUsjfVxN9J sLWFsaWduOiB0 g6X9Bp3Bm3EzelizX5Qhk OEzDbMwLsrePCy5K3SkGf wvdHI+RU05DTMnGE97WCt 8PYZ4iDqjEGpr MTQmS8HttY5zNxEqYYKrU GRkOyc+PHRhYmxlIHdpZH RoPScxMDAlJyBzdHlsZT0 xFj0tVAYeFXRj fYsyfHGtRbKjn8jwVZIdV QzxBA3taGvjP9MkpCJ5ED Kye0c0Am60B20lD9AghOG +HKNhtOC8gVN3 eU3wVeHkOiI1QHwgK296E kEiyBKwZkuwb0tez7oerE w6WgJ1ZZZaspKbsRseOYL 5q6AyJu38F60b IHdpZHRoPSIxNSUiIHZhb Fsukz2lhV7jMk2+PGNvbC U4nJS1wE3xWwZdXrD7AZm jL539DbHunJLh Kkrqn5wlb6trmXu0XaBfO TTpeaGptCkmZIL6e8EoUh 70H4XzxFdua3BaFhk5ou0 3hIOgw9Y8cPC3 L4NlDDEquxbslGGaxPawV F3rBPHeglalBVAjuD7kTU WqM0c6UzStUuB8WLnjU3X tgwS1NGRewZDp VTUrhGLNmS2szaswu0sup gmiAoAxDXSrAQx4PIl2OK LsqHblSqBlKIB3ThF2IGW 4kRWanC1gqPvk qtkltO1zYnj+HMG6iMJtk PYBJI6lDmtmnNY+PHRkIH J8lEyqOXquDIKnlH5mJLH nK5k7WkGdHkB2 RGidM8ArsxO4HNCywWGxY PGraQNSbT8kccuyu2rvwc wxNjDuNXItAAl4KRa8LPH saWduOiBsZWZ0 UaE1XMT3fOPyjJ2nmOucz tzatU5zHdr+QmlydGggRG D3FPf9B1BlTxn9XAFewPf gTO2qmMYzBRap Dk1esNwydVquML3mOEQzf sskh544UhZyi6sxHIFeeN BuWKyfGMI0J81vb7V7LYW mZOGjQVU9gCZ6 yW0swVexrjzhkYZhbQfqc rRblRssLYhqNCsgC696LE EsmPeyVaAiWJu2A3HfDrp 6YSTsgUhpSM0m yKIhDUzwCe5faRurnBhzN G2xLFJzzbgwz002MrTgp1 pqAWRuhIIeXVepPYY7D32 ed0L6YUEpFTPh HOY6bXZ8iJ5hrPayngwpu GVmdDsgdmVydGljYWwtYW dtY639RURckTxsMoBdfLq 7R7DgBxq4SFSz lVgvRR8vkPCkRUqdFe5ij YddxSxkUI6xYWDvsdqen8 68JwHbz0ahZFLhqWTrTKr wLCW6D78il9A5 VSTvTQFvXYU4sQQ8aV9xb GlnbjogbGVmdDsgdmVydG fwRXlfQJkuD176KSOcvMs nPlBhdGllbnQg DFtjXQu1E0WnYqohoKL+P J01QINhQF50sTZisEDyp4 xakIc2ByAtXOHzMPQ2mTy hASkpx6NqEMHn R15htYQgg2G2FFRwvVdfp ZWtWlCakWM9bN4rWDsdbc uwj4fkwvpkCzgmf2ioel4 1hE23D74lFXqd ZHRoPSIzMCUiIHZhbGlnb b6oiM3dBm2+TUSnpXR9eH Z0tG0cKLLgBjA6VVaeJ68 9InRvcCIvPjxj e7mcf4uhrWm1GfY6THGcx kBajRbnYFK9r5OaZr98R3 9sIHdpZHRoPSIyMCUiIHZ gpNmwsi2pcR0h Ii8+IPAnpBE6kDD7sC0nA rMzIiD9SMgiA092LrDbaS QxLryhZ24kB1XtpMQ+PHR gYhd7JWFrsGwx LW4dcBRkHPxjYv4cMXI0M fJoMmEvMTraQ0IaDTHqos ooruexzGI9FOIlRKIpjA8 6Bh7wmLfuKELs oIHPqA9xxcmxw1zvexlvM bZeBBUdMZz4JBk5PBGweV pxLuGmLZK4QkA6TPA1yED mfQ0vqDyggawf eV1lL8WeVYLbqzlkHv37j T7zXuHqQzQ9PLsbNhm+U1 vAH5arDCsLB9JJW2SuHCn vdGQ+PHRkIHN0 kHudXDllNKZfqG4hDBSxM 7o1ZwAoLeA7LFcfE2TgQX YfvwafAe59mY2fRxCaDhL 0RQiaZ8RyccP2 RKWklAMyMCwqFIE1J59ia 9H9QGAyPJGeGTN9mJJ0vF 1hbGlnbjogbGVmdDsgdmV ydGljYWwtYWxp Q088PLGidVvyZuM3UqYgI kI4XAA9A8FeIxk0XRMlnZ nlSZ2vxLDmZXuiTx0jwQy wdUnrFW3aDLSq xaflHTOyeH8mHPEfiGQcu DdsGM4mMFKyyvysi780Rn WfIQP3CSMsnNNrJ5RelZ4 yOiAjMDAwMDAw Z3EguBRmCFhtF881XLyiP tV9JTCvwsGqO9GsPRArlE fvAwF6e1S1Wr1pXTGACNW yczwvdGQ+PHRk WJD7sFhdJYpnIBHzbC4uF ZSlB9j4FgUmDgG0CNvmN1 OlFAWmkxlsBv60mY0mAfK aTvO5LIypI9Em ixP6YBIplRPvHJflHHH4N 31iq2X3QGLbNWPwMMB4qG Y5eT2pjPguzwkorGBieRq gdmVydGljYWwt GFkkP553TEIsuFqaHtLWS UFMRTwvdGQ+TBLzFAG3dZ rpCCmkUWSzqN1aAEVjP9a 8SuBfCqD8JVgg K5RlCKWecsevHc59aF6vI rYrQtC9SNkgQ0VzbzJ1OE BelKChIOhtRHG0M28th7M 4RKOkTELoJVK6 pRJ8zU0xwUuhafnkkGDym DsgdmVydGljYWwtYWxpZ2 85WDOtsZojRe8PME27TC2 6C2RoEazzqIYc bGU+PHRhYmxlIHdpZHRoP TtnAWVhSkKvpLdoNR2uKa 9yZGVyLWNvbGxhcHNlOiB uh9uwNGGyWLlz DF9ybSyiC3OblQR9NVSnr 4v0Mb71S14fW9IksBQ+PG OilHD1bIM9sN9xLvUrZvW 8SErmX316HySk hJCkBsaej4lic9ttiPu4P qEfXQEtsgYzzJudCGY9v8 NbEt44Z31mRKukENWeVLC yMCUiIHZhbGln cw1nmO9pAr2+WITvpYE3q PP5lE6aZlVvLkH3HQlaV6 20JwJxuGKiNjgnE58eE7H vdXA+PHRyPjx0 URFygHbaNK9ctHJfSLkiE l2fFQC1IxJhFeEaSPizC0 OaMAHqugaeieqimPI1HYY cWKGphP20Gw4y aGqoZz0iAIKoAUL6ZESuy KAaP3QzdI7sKtWnZDUfLY GaN0UgjXQaBQioS985SVm xGmD1HJUkitTx Z8LoALOjcGapMyM2z1P4T q4JqQckdALrVZ6kVwEtMS g4O1JdCia3ERDpiWurWK0 sbCSjBHfeFj8z nIfalAwtFU3zPXKzuayhk 360JgNnm0anRIWxrEKjNB dbGJY6M78yd7O8VBTqZVE qCEE2cCN0oS7g bGlnbjogbGVmdDsgdmVyd SgyXKghKTpcN699XTFsjV uuNlAXTrl9N8PoEyn0YGJ wpYumHT2alMVb FDnsEm7ufGkpmDgnIG2xG GQbpumqg213ZiErn1suEJ RrzRHcRHicORX0A79hy4U 9UJOmJPIqAER4 pRF8uC2myMmguutyoUMxk DsgdmVydGljYWwtYWxpZ2 96XBGfqRpmFa3FPkj5J1X qAhf9MATlpHxt GB5stVCqJJryGg4viSnmf NwgUT5wKZJnjxuls631Rg Mvv9acFQQodQPxQVbkWEL 1K40ta5N4CPGa PEOsJKT1oVX8qP1efYlgo jogbGVmdDsgdmVydGljYW vlRCgdV618GUGojAitDwL heWVyOjwvdGQ+ HX61ct56E3JyMhlnJgf6X OAhCGL5uTB9kO4vZXCwHQ izt3M8iYJ1C9DznwUpby3 or3yfQVKdGCdz Y29 (more content not included)... [facility] Coding Summaryon 09-28-2023 Coding Summary HTMLBase 64 IzuwhspuEKk8eOp+PGhlY WQ+OI7DFBQuP65kxSBraL 9rC4LZRPkMHclvUEIXXOa WZuEpboUeFF3ukCYeXCGs IC8+FW5oFDXnKwmrmPGdd 5P7rKV8K91eds0iLHnszN S3XOCvAaSzxndnn0fcwJk 6IDcuNmluOyBt SGAtyQ93GQE1kO23Ig12f OYckUSvp4qkmIe6LsLzEI PiJWA3qGrfBHoap4QvXBA cY10xySNhh8H4 EZVulIhwcPRiClOmcCL1m X9pHNwmyopps2saaqhvKo y9dm02pEYsk5F9sWH2S3U sztZ0GCPupONw TcjuzVCErY6tslcsz6pwh gvkLsVyQVNnDPg0TGu5II EfiMraKlPdJD57XFW9ODH tmgEwB9EeXAWn vHrqAtU5s1A0Fu3IG5OES ywtQ7UNVQGXBTfmxOR+PC 27wp32B8NvHehqXdn2GOK oWIG5qJR1tQ5q DRKiOPyiv3D3tIR9D7Xxa jJsms8qq8npMBYoBGylT9 7mjHKsm5E0UJPmbDA9GFE hmUgcXoQzpO14 Oyc+MEGbtHjar2BpYhivn 2cho7aeuWj3EwjlFRYldo TffNbjEEE4r4JsEm1uIHF lqAW2iSV1pP2f SqVeTwZ2NSauP020BwYdt DSfNeznI22kW5PoqGT+PH MyZvc1EUHepGimST3fC8J hZGRpbmctbGVm jHsxER0lBSAzpdayLMVuj U5qUCHlW3y2DmGpNqA3NV qgM8QhQWQvwzukTu87wX0 sIsZiAfJ0HXno J2KgemS6NZPmkKVmZMhoH KO9M02lc8W4YZCvUFFuYN E5vUR8wC6txOagkyjbiZX mdDsgdmVydGlj JVnfMItgX857BRPhkDbjF kNvZGluZyBEYXRlOiAgMD QvMDgvMjAyNDwvdGQ+PHR jPZM9aXnlKZQw bLOsBZdnRe2vsWbbcIvnO N5nTDMjsccxMPJccP5bSC ZwkEPucTybUR4jOLQnfyc ub162HzMlUAI6 SQCdnXKoW9KkmC0yCwLjS DPgHGIqY9FdjMOdNKhwY7 21OVcfRnM6MLXtepDkL5M sLWFsaWduOiB0 i4O6Ci3Ht4KfkovuW7Hls XCvKrKfSueuCDc4U8TyKl wvdHI+XB97PMBjWY85PNn 5SVR9gJhuDJtf PUZgS6YxtA1pOcItLKAnZ GRkOyc+PHRhYmxlIHdpZH RoPScxMDAlJyBzdHlsZT0 aEn7sSBHzKDVb rApltKMwJyYwp8emQFTsC WsxHZ2gfOkyV5ClaVV7YN Wjv6x5Tt57H88rF7CrbCW +NEGnxHJ6aCF9 qS6iXiWbPxB4UZaxM636C hZfqRLaTfrmq9eko4gkrP g5CyT3LXVgmeMzmZgyKJJ 8n6MrWu98W66x IHdpZHRoPSIxNSUiIHZhb Goapn8cqP0gNq7+PGNvbC A4wRL6zF7eMsLlHjD1QYb hY725IyRkxMIy Bouxg3pcx3riwZh9CpKlU CXgydLsfOqtXKS3a7PbBe 66B9GueMtdx1QkLus9vk5 8sPQho4N1lRC3 X9DfQOCxzwxfbHIyyPeuJ Y8uANKozrbaIXXopZ7tFZ SwG5y2LmFgYlZ3LIwrP0L wpwL9AYHtnLUp OZMomGCOiH9msqwml4tdn slxMpUgQMAuOLz9ODt8UG UyaYbgFfSvDCY2UjE3EGR 2eYRjaN9dlTya dcahqK1iXyj+HLH8dIUpc WFFVC6dJfqcaOF+PHRkIH A0rVlzWGbwIIIrjG0yGZO nS5k9NsIiVeD1 XHakD4QcfmN9LJYkoVLnP ZAbcTTJjV2orxusq6ocnk egLdKnKIRgQEb8YJk4QKY saWduOiBsZWZ0 TiM5MVE5lFZaoB8bxCghi uwmdY1nYnt+QmlydGggRG Y5VVl4M3GlQui1NXOxzLd sVW2wrRTiVPww Jt3abFkmcHpzTW1uIJIin fwqh576HcUgw6zyVYWqlX IzCNmbBUP7N45qq4Z1ZFG pFMBzTQM6uRE0 wQ4mqPvdtapkrSDmaXyjl wMeqUfxJZvoSUbtT960RI KxfYxnPhIsKUu8A4IkZtn 4IIJhgUjjXV0y xHRbHOthJj5iyQnoiXemQ A9tVHEvcuelo847UfCbn6 paAGTttUNaLDapTQA1V41 vo2F9OUVdDWDw ZIF2xRW8wS5eeDidapixy GVmdDsgdmVydGljYWwtYW lfM314OKZksAxmRiAmdJn 3K8OrAvu3NSEx eOxsXX1jgAOgRHdmEs2fq WnfmKldJU8pODKjyaptg5 60LwKbj6fxFXZxxJJqDPm bYWM0W72ps1V3 FTYtBWAvWQB4sEO1sF1nf GlnbjogbGVmdDsgdmVydG dlBNlfOHwlE583LPHmuSf nPlBhdGllbnQg JVdfBDp1J5EnBotndLM+P T21FGFoDI73wXOgnNGul3 fqjYe4DjZyIGUqURG2mQv vNYwhv7UyPPEg R42enUGpg6H1NANdsQyym NPlVlTfyKC6aC6lUYzaxb mbq6mwtqyzBnomv5qyrc1 4zD12C67tEHvk ZHRoPSIzMCUiIHZhbGlnb y8dpA4qFx9+GJGtcZC4rF L0gC7yKLLzDyX9KHhbS63 9InRvcCIvPjxj y5cyk4jgbZh5WiC7WMAdc fSpiQvlNBW8h8JlHp11W7 9sIHdpZHRoPSIyMCUiIHZ icRrjme9qbJ9u Ii8+VAFreWI2tCI6zQ8vG hFnIvZ5AImmI083OwHtpL SiEfnbG24gK5ZquJJ+PHR hPyu2NJNmeNnm KZ9zeQLqEHtoDc6mYUG7G kBfKlYhORidS9JlOCRsii hqhsvpvNZ1CIRlYZWyhS2 6Sg5gvWmsCUOl lHPYnB3yobbyx2qtcoxtA tGqIZTvBTp8KIb8CKQtfT goWsMsLGG5IqL5QOU0aWF jdK4ygIhkofvr gL6xG9YcWJTvmcieUe93k P0tJeMaVtB8WMfkOpi+U1 bNN9cbXZyZO7IVM4HoOTy vdGQ+PHRkIHN0 oMprQTicLNKxxT4nECXfB 9s6QkIoZmZ8EQoaZ2ItYW MdcbnkPb61zG3nHlVxLaX 8LBbpX7FircQ1 MVLiyFKtEHpuFGL1A07kk 3Y1LLWsBJAnSCZ1kRJ6wV 1hbGlnbjogbGVmdDsgdmV ydGljYWwtYWxp N389VBDfpLneOuJ4TfQtK gA5VKO0K2QbBxr3IIIgxR wgST7kdZIeWBnqHw2skFn wmTgeVC4eDVYx qkwrCBWyyV7lTCOtgJMgy HqdXH2iNETexoqde124Rn ZgFCL3ZMCpqQHbL3RbwR6 yOiAjMDAwMDAw V2EkvNLjRCzfS409XYvtZ wU5ZUMbnjFzT4QxYBUjaV xzJgO0v5G0Bh4qDUYVEZC yczwvdGQ+PHRk QYK1eYryPOhjDKFieV5tT LDaK6t2AcXaSqL6MMhmR7 VdHFFciockZk44mS4nMfE iVtI6MOhpU6Tv cyQ6WAUctZMcUPbrWTW1R 31cw6M6YVYoUPFwAVH2iH D2zX2qxBxevccocYVwyRa gdmVydGljYWwt MWstJ790XKRnxRjrZoQJR UFMRTwvdGQ+VFCgQNO3pH ahWYueABHfhT5iBBXuU3l 5OpFsDaX6SNso W1BaYBRimhilDt30bX6vM nJqAfM4DCzjD1GcjuN4RJ ErnEIwYHnoSTE0K22ja2I 7IZKbWDYwPIV2 qRS2kF1dcKfcscijuCCcx DsgdmVydGljYWwtYWxpZ2 07VGJzdHodUw4KOQ50EE3 8Y6EcSwlqxYNv bGU+PHRhYmxlIHdpZHRoP KkpSQOfAdYsnVsjJM1gJl 9yZGVyLWNvbGxhcHNlOiB dj2fbTXDeQYip MT6yqJkpK1ZsuQB7ONTut 4o8Vb79J17oH5BmvBK+PG FhdDI6zIR5eB8kVcWcXoZ 9PJmrD606KkHp cVNbRsbnn5sjs8rwiMp9X eHeQUWlpiQbrIuuDTJ0w4 KjJp75G70sFRmcAMEkZHI yMCUiIHZhbGln hj7hbY0aJl6+FVZieQV8n QB5sC8tKdErLvF8BSzdL8 75QwBxvTPiCupkR17oA5D vdXA+PHRyPjx0 JFNoaDgeTX8elLPpGBscT n1qJED6ZwSgErZrHToqF8 OsKDDkywindhutnEP6TPP hNYWpwK65Uj5j yNmhMu1lGKLyZMD2YVNeg UGeT7XqlA7pNcTxUCYxNZ EiL8QliZXcRIrzA937UTt tYhC9URLvlhXn O8KeZKZwgZozCjI0w2N8J b9VmRlfvCOhJR1gAdGaXZ d9R9MuHwi4ODZkjCiaTR9 dqWYaDRcvQw2m jDoqdCbwRB5aIHPpyckte 800CpByk8usPWIdgGYjEF kjEFS0R86xm0E4FPPsFEF tDGG6uPO3uE0i bGlnbjogbGVmdDsgdmVyd LcfMWmfTYeaI807COVtgI pwRbKWNcq9W9DyMaw4EWY qgIvwGP7spKSn ABynJg5orWpxoZlhPD8eF KTvfyzis231SbJdz2wnMW EmgNUeXGylHMC5B57ai5C 1KTHqJMDuXYV3 nJJ0jL4aqCgqyphbwUIvw DsgdmVydGljYWwtYWxpZ2 76BIHooYqqDz4YJpv8R5Y oGki5XPErzTqy TF5otQQvTRifTp6wvQbig PdqYF4nXYAfiwgtk626Zh Pso4gsUOWtpWUzLDrhGBV 3D62ep1H8LEVr TKBiCWT2uXE2rP2ciTssz jogbGVmdDsgdmVydGljYW pgLSqiM085QHVopEyhYhC heWVyOjwvdGQ+ OU91tr82N6RoIxjpRsh6N PMlTRI9yEP8pH6iSCIsIT wsp1W7rJS3H4DdkkHajm1 ld3lmFYQmPXyg Y29 (more content not included)... [facility] ED Clinical Summaryon 2023 ED Clinical Summary [facility] ? Urgent Care [address] [place] [address] [id number] Clinical Summary PERSON INFORMATION Name: NORA KAUFMAN Age: 37 Years Sex: FEMALE : 1985 MRN: Acct#: Visit Reason: Ear pain; BILATERAL EAR PAIN Arrival: 09/26/2023 10:46:14 Discharge: 09/26/2023 11:16:00 LOS: 000 00:30 Check In: 09/26/2023 10:46:14 Checkout: 09/26/2023 11:16:00 Address: [address] [place] [id number] PCP: Crystal Claudio APRN, CNP PROVIDER INFORMATION Provider Role Assigned Unassigned Anali Correia PA-C ED PA 09/26/2023 10:50:47 Meeta Sheikh [employer] Nurse 09/26/2023 10:50:54 VITALS INFORMATION Vital Sign Triage Latest Temperature Tympanic Temperature Temporal Artery Pulse Rate O2 Sat Respiratory Rate Blood Pressure /81 mmHg /81 mmHg MEDICAL INFORMATION Medications Given: Allergy Information: penicillins; codeine PHYSICIAN DOCUMENTATION DISCHARGE INFORMATION: Discharge Disposition: Home Discharge Location: Home PATIENT EDUCATION INFORMATION Instructions: Otitis Media, Adult; Antibiotic Medicine, Adult; Probiotics Follow-Up: With: Address: When: Crystal Claudio APRN, CNP [address] [place] [id number] DIAGNOSIS: 1:Right otitis media Patient Understands: Yes - Patient/family/caregi sanaz verbalizes understanding of instructions given Comment: [facility] ED Patient Summaryon ED Patient Summary [facility] ? Urgent Care [address] [place] [id number] PATIENT DISCHARGE INSTRUCTIONS Patient Information Name: NORA KAUFMAN Age: 37 Years Date of : 1985 [facility] SAULT: [id number] Reason For Visit: Ear pain; BILATERAL EAR PAIN Arrival Time: 09/26/2023 10:46:14 Primary Care Physician: Crystal Claudio APRN, CNP Attending Physician: Anali Correia PA-C Comment: Patient Education With: Address: When: Crystal Claudio APRN, CNP [address] [place] [address] Otitis Media, Adult Otitis media occurs when there is inflammation and fluid in the middle ear with signs and symptoms of an acute infection. The middle ear is a part of the ear that contains bones for hearing as well as air that helps send sounds to the brain. When infected fluid builds up in this space, it causes pressure and can lead to an ear infection. The eustachian tube connects the middle ear to the back of the nose (nasopharynx) and normally allows air into the middle ear. If the eustachian tube becomes blocked, fluid can build up and become infected. What are the causes? This condition is caused by a blockage in the eustachian tube. This can be caused by mucus or by swelling of the tube. Problems that can cause a blockage include: ? A cold or other upper respiratory infection. ? Allergies. ? An irritant, such as tobacco smoke. ? Enlarged adenoids. The adenoids are areas of soft tissue located high in the back of the throat, behind the nose and the roof of the mouth. They are part of the body's defense system (immune system). ? A mass in the nasopharynx. ? Damage to the ear caused by pressure changes (barotrauma). What increases the risk? You are more likely to develop this condition if you: ? Smoke or are exposed to tobacco smoke. ? Have an opening in the roof of your mouth (cleft palate). ? Have gastroesophageal reflux. ? Have an immune system disorder. What are the signs or symptoms? Symptoms of this condition include: ? Ear pain. ? Fever. ? Decreased hearing. ? Tiredness (lethargy). ? Fluid leaking from the ear, if the eardrum is ruptured or has burst. ? Ringing in the ear. How is this diagnosed? This condition is diagnosed with a physical exam. During the exam, your health care provider will use an instrument called an otoscope to look in your ear and check for redness, swelling, and fluid. He or she will also ask about your symptoms. Your health care provider may also order tests, such as: ? A pneumatic otoscopy. This is a test to check the movement of the eardrum. It is done by squeezing a small amount of air into the ear. ? A tympanogram. This is a test that shows how well the eardrum moves in response to air pressure in the ear canal. It provides a graph for your health care provider to review. How is this treated? This condition can go away on its own within 3?5 days. But if the condition is caused by a bacterial infection and does not go away on its own, or if it keeps coming back, your health care provider may: ? Prescribe antibiotic medicine to treat the infection. ? Prescribe or recommend medicines to control pain. Follow these instructions at home: ? Take vpdj-nqe-przifmd and prescription medicines only as told by your health care provider. ? If you were prescribed an antibiotic medicine, take it as told by your health care provider. Do not stop taking the antibiotic even if you start to feel better. ? Keep all follow-up visits. This is important. Contact a health care provider if: ? You have bleeding from your nose. ? There is a lump on your neck. ? You are not feeling better in 5 days. ? You feel worse instead of better. Get help right away if: ? You have severe pain that is not controlled with medicine. ? You have swelling, redness, or pain around your ear. ? You have stiffness in your neck. ? A part of your face is not moving (paralyzed). ? The bone behind your ear (mastoid bone) is tender when you touch it. ? You develop a severe headache. Summary ? Otitis media is redness, soreness, and swelling of the middle ear, usually resulting in pain and decreased hearing. ? This condition can go away on its own within 3?5 days. ? If the problem does not go away in 3?5 days, your health care provider may give you medicines to treat the infection. ? If you were prescribed an antibiotic medicine, take it as told by your health care provider. ? Follow all instructions that were given to you by your health care provider. This information is not intended to replace advice given to you by your health care provider. Make sure you discuss any questions you have with your health care provider. Document Revised: 09/16/2021 Document Reviewed: 09/16/2021 [employer] Patient Education ? 2022 [employer] Antibiotic Medicine, Adult (I (more content not included)... Normal [facility] .Auto Diff 1on 09-24-2023 Auto Taney % 7 % Normal -12 [facility] Comment on above: Performed By: #### 2 [id number], [id number], [id number], 5521206, 9029232, [id number] ####[facility] (DEFAULT)[address] [place] [address] Baso Abs# 0.1 x10 Normal 0.0-0.2 [facility] Comment on above: Performed By: #### 2 [id number], [id number], 859288344, 9545587, 0456691, 12380587 ####[facility] (DEFAULT)[address] [place] [address]01 Basophils/100 WBC (Bld) 0.8 % Normal 0.2-2.0 [facility] Comment on above: Performed By: #### 2 [id number], [id number], 565615299, 5104244, 1015207, 52937947 ####[facility] (DEFAULT)[address] [place] [address]226 Eos Abs# 0.1 x10 Normal 0.0-0.4 [facility] Comment on above: Performed By: #### 2 [id number], [id number], 411900124, 9089328, 5212309, 80266303 ####[facility] (DEFAULT)[address] [place] [address] 48714 Eosinophils/100 WBC (Bld) 0.8 % Low 0.9-4.0 [facility] Comment on above: Performed By: #### 2 2799141, [id number], 725017981, 4173750, 5635094, 32784711 ####[facility] (DEFAULT)[address] [place] [address] Lymph Abs# 1.9 x10 Normal 1.3-2.9 [facility] Comment on above: Performed By: #### 2 9134392, 6991916503, 939836659, 2811337, 2977354, 86078294 ####[facility] (DEFAULT)[address] [place] [address] Lymphocytes/100 WBC (Bld) 25 % Normal 14-48 [facility] Comment on above: Performed By: #### 2 0178735, [id number], 992171532, 2931303, 7622098, 63401933 ####[facility] (DEFAULT)[address] [place] [address] Taney Abs# 0.6 x10 Normal 0.0-0.8 [facility] Comment on above: Performed By: #### 2 1342183, [id number], 832877657, 7433347, 0570133, 85632720 ####[facility] (DEFAULT)[address] [place] [address] Neut Abs# 5.2 x10 Normal 1.5-9.2 [facility] Comment on above: Performed By: #### 2 6253299, [id number], 897289831, 8057129, 8213829, 00840637 ####[facility] (DEFAULT)[address] [place] [address] Neutrophils/100 WBC (Bld) 67 % Normal 44-88 [facility] Comment on above: Performed By: #### 2 5799860, 2812662234, 091707712, 5731039, 9833786, 32346774 ####[facility] (DEFAULT)[address] [place] [address] CBC w/ Auto Diffon 4 Erythrocyte distribution width (RBC) [Ratio] 13.7 % Normal 11.5-15.0 [facility] Comment on above: Performed By: #### 2 8566142, [id number], 223634757, 4043998, 4679364, 25355312 ####[facility] (DEFAULT)[address] [place] [address] Hematocrit (Bld) [Volume fraction] 33.7 % Normal 33.7-40.4 [facility] Comment on above: Performed By: #### 2 9870670, 1214364370, 802269058, 3549339, 0452543, 19887394 ####[facility] (DEFAULT)[address] [place] [address] Hemoglobin (Bld) [Mass/Vol] 11.0 g/dL Low 11.3-15.9 [facility] Comment on above: Performed By: #### 2 1651100, [id number], 985332347, 4055707, 4647291, 30268453 ####[facility] (DEFAULT)[address] [place] [address] Man Diff? Auto Invalid Interpretation Code [facility] Comment on above: Performed By: #### 2 7316951, [id number], 877506126, 8585894, 4906224, 33063221 ####[facility] (DEFAULT)[address] [place] [address] MCH (RBC) [Entitic mass] 28 pg Normal 24-34 [facility] Comment on above: Performed By: #### 2 7060128, 7238513665, 396526262, 8954530, 8902375, 49533596 ####[facility] (DEFAULT)[address] [place] [address] MCHC (RBC) [Mass/Vol] 33 g/dL Normal 26-37 [facility] Comment on above: Performed By: #### 2 0653870, 2792992810, 614982095, 7796043, 0535622, 65776526 ####[facility] (DEFAULT)[address] [place] [address] MCV (RBC) [Entitic vol] 85 fL Normal 81-100 [facility] Comment on above: Performed By: #### 2 5713024, 4827324642, 674888869, 9625792, 0065682, 67973344 ####[facility] (DEFAULT)[address] [place] [address] Platelet 269 x10 Normal 138-427 [facility] Comment on above: Performed By: #### 2 3236181, 7321081618, 349989731, 3898958, 7491551, 83136603 ####[facility] (DEFAULT)[address] [place] [address] Platelet mean volume (Bld) [Entitic vol] 8.0 fL Normal 6.3-10.2 [facility] Comment on above: Performed By: #### 2 3096010, 5982322511, 402144172, 2205705, 5220520, 10135029 ####[facility] (DEFAULT)[address] [place] [address] RBC 3.99 x10 Normal 3.70-5.30 [facility] Comment on above: Performed By: #### 2 4601762, 8353486097, 649908733, 4096989, 2754826, 77930055 ####[facility] (DEFAULT)[address] [place] [address] WBC 7.9 x10 Normal 3.5-10.5 [facility] Comment on above: Performed By: #### 2 5228975, 1380216063, 212285755, 2716090, 0931213, 09137618 ####[facility] (DEFAULT)[address] [place] [address] CMP Standardon 09-24-2023 eGFR Non AA >60 Invalid Interpretation Code [facility] Comment on above: Performed By: #### 2 5282345, 6772401802, 028090747, 6009311, 2251362, 62991085 ####[facility] (DEFAULT)[address] [place] [address] eGFR AA >60 Invalid Interpretation Code [facility] Comment on above: Performed By: #### 2 1894671, 3514942130, 164969261, 8343272, 9846665, 39665648 ####[facility] (DEFAULT)[address] [place] [address] Albumin [Mass/Vol] 3.9 g/dL Normal 3.5-5.0 [facility] Comment on above: Performed By: #### 2 7253113, 9884286088, 294489709, 9158346, 4970854, 57054040 ####[facility] (DEFAULT)[address] [place] [address] Albumin/Globulin [Mass ratio] 1.2 {ratio} Low 1.4-2.6 [facility] Comment on above: Performed By: #### 2 3350007, 1714029968, 859310204, 5737023, 9369840, 46273726 ####[facility] (DEFAULT)[address] [place] [address] Alk Phos 55 IU/L Normal 32-91 [facility] Comment on above: Performed By: #### 2 8519858, 1586014573, 348097296, 2165552, 9328206, 95416000 ####[facility] (DEFAULT)[address] [place] [address] ALT [Catalytic activity/Vol] 12.0 U/L Low 14.0-54.0 [facility] Comment on above: Performed By: #### 2 3039658, 4035694815, 780357586, 5299367, 9885471, 63885921 ####[facility] (DEFAULT)[address] [place] [address] Anion gap [Moles/Vol] 11.0 mmol/L Normal 5.0-19.0 [facility] Comment on above: Performed By: #### 2 [id number], [id number], [id number], 2392005, 2287758, [id number] ####[facility] (DEFAULT)[address] [place] [address] AST [Catalytic activity/Vol] 16 U/L Normal 15-41 [facility] Comment on above: Performed By: #### 2 [id number], [id number], [id number], 7333198, 4517849, [id number] ####[facility] (DEFAULT)[address] [place] [address] Bili Total 0.5 mg/dL Normal 0.3-1.2 [facility] Comment on above: Performed By: #### 2 [id number], [id number], [id number], 3217381, 2017404, 00083787 ####[facility] (DEFAULT)[address] [place] [address] Calcium [Mass/Vol] 8.9 mg/dL Normal 8.9-10.3 [facility] Comment on above: Performed By: #### 2 [id number], [id number], 933111882, 4475243, 9038539, 85903241 ####[facility] (DEFAULT)[address] [place] [address] Chloride [Moles/Vol] 106 mmol/L Normal 101-111 [facility] Comment on above: Performed By: #### 2 6784792, [id number], 670447828, 4315863, 3661775, 66822728 ####[facility] (DEFAULT)[address] [place] [address] CO2 [Moles/Vol] 26 mmol/L Normal 21-32 [facility] Comment on above: Performed By: #### 2 9835432, [id number], 722643627, 0527180, 6818403, 38809001 ####[facility] (DEFAULT)[address] [place] [address] Creatinine [Mass/Vol] 0.55 mg/dL Low 0.60-1.30 [facility] Comment on above: Performed By: #### 2 3936220, [id number], 791161903, 0377075, 2659451, 29007858 ####[facility] (DEFAULT)[address] [place] [address] Globulin (S) [Mass/Vol] 3.2 g/dL Normal 1.5-4.3 [facility] Comment on above: Performed By: #### 2 [id number], [id number], 701789241, 1467946, 5935531, 67793001 ####[facility] (DEFAULT)[address] [place] [address] Glucose [Mass/Vol] 97.0 mg/dL Normal 74.0-118.0 [facility] Comment on above: Performed By: #### 2 1586895, [id number], 352623328, 5843484, 9093416, 41375473 ####[facility] (DEFAULT)[address] [place] [address] Osmolality 277 mOsm/L Invalid Interpretation Code [facility] Comment on above: Performed By: #### 2 8428610, [id number], 096525587, 9878592, 2496771, 55817019 ####[facility] (DEFAULT)[address] [place] [address] Potassium [Moles/Vol] 4.0 mmol/L Normal 3.6-5.1 [facility] Comment on above: Performed By: #### 2 9031483, [id number], 863221719, 4944495, 1424711, 55051240 ####[facility] (DEFAULT)[address] [place] [address]0547 Protein [Mass/Vol] 7.1 g/dL Normal 6.5-8.1 [facility] Comment on above: Performed By: #### 2 4223572, [id number], 408199405, 8929666, 3320960, 91861440 ####[facility] (DEFAULT)[address] [place] [address] 82651 Sodium [Moles/Vol] 139.0 mmol/L Normal 136.0-144.0 [facility] Comment on above: Performed By: #### 2 2195039, [id number], 009844837, 5716410, 7537117, 38046834 ####[facility] (DEFAULT)[address] [place] [address] 96[address] Urea nitrogen [Mass/Vol] 12 mg/dL Normal 8-26 [facility] Comment on above: Performed By: #### 2 8180127, [id number], 635554994, 5823420, 4408459, 41145012 ####[facility] (DEFAULT)[address] [place] [address] Urea nitrogen/Creatini ne [Mass ratio] 21.8 mg/mg High 4.6-16.2 [facility] Comment on above: Performed By: #### 2 6950258, [id number], 416964739, 5692897, 1775522, 03427430 ####[facility] (DEFAULT)[address] [place] [address] Ferritinon 09-24-2023 Ferritin [Mass/Vol] 16.4 ng/mL Normal 12.0-150.0 [facility] Comment on above: Performed By: #### 2 1410445, [id number], 084091131, 7825457, 4733743, 24179217 ####[facility] (DEFAULT)[address] [place] [address] Iron Profileon 09-24-2023 Iron [Mass/Vol] 48.0 ug/dL Normal 28.0-170.0 [facility] Comment on above: Performed By: #### 2 2680099, [id number], 737698552, 0821267, 0393144, 06075765 ####[facility] (DEFAULT)[address] [place] [address] Iron Sat 13 % Low 20-55 [facility] Comment on above: Performed By: #### 2 9121588, [id number], 845448597, 8654560, 4935004, 61429190 ####[facility] (DEFAULT)[address] [place] [address] TIBC 364 mcg/dL Normal 250-400 [facility] Comment on above: Performed By: #### 2 [id number], [id number], 399007348, 0688700, 7782233, 22050884 ####[facility] (DEFAULT)[address] [place] [address] Transferrin [Mass/Vol] 259.9 mg/dL Normal 192.0-382.0 [facility] Comment on above: Performed By: #### 2 3872839, [id number], 772882336, 5402020, 2206387, 46467991 ####[facility] (DEFAULT)[address] [place] [address] Reminder Messageson 09-24-19 24 Reminder Messages - From: Crystal Claudio APRN, CNP To: González Fatima ([email or web address]); Sent: 09/24/2023 12:38:06 EDT ! Show up: 09/24/2023 12:38:06 EDT Subject: Results Follow Up Actions: Call the patient with result(s) Due Date/Time: 09/25/2023 12:37:00 EDT Reminder Comments: begin ferrous sulfate 325mg PO bid to pharmacy of choice, repeat CBC and iron profile in 4 weeks Results: Date Result Name Ind Value Ref Range 09/24/2023 7:40 Sodium Level 139.0 mmol/L (136.0 - 144.0) 09/24/2023 7:40 Potassium Level 4.0 mmol/L (3.6 - 5.1) 09/24/2023 7:40 Chloride Level 106 mmol/L (101 - 111) 09/24/2023 7:40 CO2 26 mmol/L (21 - 32) 09/24/2023 7:40 Anion Gap 11.0 mmol/L (5.0 - 19.0) 09/24/2023 7:40 Glucose Level 97.0 mg/dL (74.0 - 118.0) 09/24/2023 7:40 BUN 12 mg/dL (8 - 26) 09/24/2023 7:40 Creatinine Level ((L)) 0.55 mg/dL (0.60 - 1.30) 09/24/2023 7:40 BUN/Creat Ratio ((H)) 21.8 (4.6 - 16.2) 09/24/2023 7:40 eGFR AA >60 mL/min/1.73m2 09/24/2023 7:40 eGFR Non AA >60 mL/min/1.73m2 09/24/2023 7:40 Calcium Level 8.9 mg/dL (8.9 - 10.3) 09/24/2023 7:40 Bili Total 0.5 mg/dL (0.3 - 1.2) 09/24/2023 7:40 Alk Phos 55 IU/L (32 - 91) 09/24/2023 7:40 AST/SGOT 16 IU/L (15 - 41) 09/24/2023 7:40 ALT/SGPT ((L)) 12.0 IU/L (14.0 - 54.0) 09/24/2023 7:40 Protein Total 7.1 gm/dL (6.5 - 8.1) 09/24/2023 7:40 Albumin Level 3.9 gm/dL (3.5 - 5.0) 09/24/2023 7:40 Globulin 3.2 gm/dL (1.5 - 4.3) 09/24/2023 7:40 A/G Ratio ((L)) 1.2 (1.4 - 2.6) 09/24/2023 7:40 Osmolality 277 mOsm/L 09/24/2023 7:40 T4 8.40 mcg/dL (6.09 - 12.23) 09/24/2023 7:40 T7 3.80 (1.94 - 5.91) 09/24/2023 7:40 TSH 0.50 mcIU/mL (0.45 - 5.33) 09/24/2023 7:40 T3 Uptake. 46 % (32 - 48) 09/24/2023 7:40 Iron Level 48.0 mcg/dL (28.0 - 170.0) 09/24/2023 7:40 TIBC 364 mcg/dL (250 - 400) 09/24/2023 7:40 Iron Sat ((L)) 13 % (20 - 55) 09/24/2023 7:40 Ferritin 16.4 ng/mL (12.0 - 150.0) 09/24/2023 7:40 Transferrin 259.9 mg/dL (192.0 - 382.0) 09/24/2023 7:40 WBC 7.9 x103/mcL (3.5 - 10.5) 09/24/2023 7:40 RBC 3.99 x106/mcL (3.70 - 5.30) 09/24/2023 7:40 Hgb ((L)) 11.0 gm/dL (11.3 - 15.9) 09/24/2023 7:40 Hct 33.7 % (33.7 - 40.4) 09/24/2023 7:40 MCV 85 fL (81 - 100) 09/24/2023 7:40 MCH 28 pg (24 - 34) 09/24/2023 7:40 MCHC 33 gm/dL (26 - 37) 09/24/2023 7:40 RDW 13.7 % (11.5 - 15.0) 09/24/2023 7:40 Platelet 269 x103/mcL (138 - 427) 09/24/2023 7:40 MPV 8.0 fL (6.3 - 10.2) 09/24/2023 7:40 Auto Neut % 67 % (44 - 88) 09/24/2023 7:40 Auto Lymph % 25 % (14 - 48) 09/24/2023 7:40 Auto Taney % 7 % (1 - 12) 09/24/2023 7:40 Auto Eos % ((L)) 0.8 % (0.9 - 4.0) 09/24/2023 7:40 Auto Baso % 0.8 % (0.2 - 2.0) 09/24/2023 7:40 Neut Abs# 5.2 x103/mcL (1.5 - 9.2) 09/24/2023 7:40 Lymph Abs# 1.9 x103/mcL (1.3 - 2.9) 09/24/2023 7:40 Taney Abs# 0.6 x103/mcL (0.0 - 0.8) 09/24/2023 7:40 Eos Abs# 0.1 x103/mcL (0.0 - 0.4) 09/24/2023 7:40 Baso Abs# 0.1 x103/mcL (0.0 - 0.2) Patient notified, orders placed. Normal [facility] Thyroid Panel 4on 09-24-2023 T3 Uptake. 46 % Normal 32-48 [facility] Comment on above: Performed By: #### 2 [id number], [id number], 656885336, 0139284, 6800650, 66675167 ####[facility] (DEFAULT)[address] [place] [address] T4 [Mass/Vol] 8.40 ug/dL Normal 6.09-12.23 [facility] Comment on above: Performed By: #### 2 4788001, [id number], 171640283, 1177786, 2802663, 88528808 ####[facility] (DEFAULT)[address] [place] [address] 89629 T7 3.80 Normal 1.94-5.91 [facility] Comment on above: Performed By: #### 2 2525577, [id number], 195997786, 2876488, 4277573, 83045521 ####[facility] (DEFAULT)[address] [place] [address] 21782 TSH Qn 0.50 m[IU]/L Normal 0.45-5.33 [facility] Comment on above: Performed By: #### 2 [id number], [id number], 253492677, 9833768, 0644502, 74928562 ####[facility] (DEFAULT)[address] [place] [address] 08736 Patient Handouton 09-22-2023 Patient Handout Immunology Fatigue If you have fatigue, you feel tired all the time and have a lack of energy or a lack of motivation. Fatigue may make it difficult to start or complete tasks because of exhaustion. Occasional or mild fatigue is often a normal response to activity or life. However, long-term (chronic) or extreme fatigue may be a symptom of a medical condition such as: ? Depression. ? Not having enough red blood cells or hemoglobin in the blood (anemia). ? A problem with a small gland located in the lower front part of the neck (thyroid disorder). ? Rheumatologic conditions. These are problems related to the body's defense system (immune system). ? Infections, especially certain viral infections. Fatigue can also lead to negative health outcomes over time. Follow these instructions at home: Medicines ? Take kwia-xqv-xsnxeyb and prescription medicines only as told by your health care provider. ? Take a multivitamin if told by your health care provider. ? Do not use herbal or dietary supplements unless they are approved by your health care provider. Eating and drinking ? Avoid heavy meals in the evening. ? Eat a well-balanced diet, which includes lean proteins, whole grains, plenty of fruits and vegetables, and low-fat dairy products. ? Avoid eating or drinking too many products with caffeine in them. ? Avoid alcohol. ? Drink enough fluid to keep your urine pale yellow. Activity ? Exercise regularly, as told by your health care provider. ? Use or practice techniques to help you relax, such as yoga, tammy chi, meditation, or massage therapy. Lifestyle ? Change situations that cause you stress. Try to keep your work and personal schedules in balance. ? Do not use recreational or illegal drugs. General instructions ? Monitor your fatigue for any changes. ? Go to bed and get up at the same time every day. ? Avoid fatigue by pacing yourself during the day and getting enough sleep at night. ? Maintain a healthy weight. Contact a health care provider if: ? Your fatigue does not get better. ? You have a fever. ? You suddenly lose or gain weight. ? You have headaches. ? You have trouble falling asleep or sleeping through the night. ? You feel angry, guilty, anxious, or sad. ? You have swelling in your legs or another part of your body. Get help right away if: ? You feel confused, feel like you might faint, or faint. ? Your vision is blurry or you have a severe headache. ? You have severe pain in your abdomen, your back, or the area between your waist and hips (pelvis). ? You have chest pain, shortness of breath, or an irregular or fast heartbeat. ? You are unable to urinate, or you urinate less than normal. ? You have abnormal bleeding from the rectum, nose, lungs, nipples, or, if you are female, the vagina. ? You vomit blood. ? You have thoughts about hurting yourself or others. These symptoms may be an emergency. Get help right away. Call 911. ? Do not wait to see if the symptoms will go away. ? Do not drive yourself to the hospital. Get help right away if you feel like you may hurt yourself or others, or have thoughts about taking your own life. Go to your nearest emergency room or: ? Call 911. ? Call the National Suicide Prevention Lifeline at or 316. This is open 24 hours a day. ? Text the Crisis Text Line at 807414. Summary ? If you have fatigue, you feel tired all the time and have a lack of energy or a lack of motivation. ? Fatigue may make it difficult to start or complete tasks because of exhaustion. ? Long-term (chronic) or extreme fatigue may be a symptom of a medical condition. ? Exercise regularly, as told by your health care provider. ? Change situations that cause you stress. Try to keep your work and personal schedules in balance. This information is not intended to replace advice given to you by your health care provider. Make sure you discuss any questions you have with your health care provider. Document Revised: 03/31/2022 Document Reviewed: 03/31/2022 [employer] Patient Education ? 2022 [employer]. [facility] 09-11-2023 Outside Records [id number] [facility] 09-01-2023 Outside Records [id number] #1[facility] 08-03-2023 Outside Records [id number]#1. [facility] Rad - Other Radiology Report on 06-23-2023 Rad - Other Radiology Report [id number] .[facility] wo conon MR lumbar spine wo con [facility] [place] [address] MRI Report Signed Patient: Nora Kaufman MR#: [id number] : 1985 Acct:[id number] Age/Sex: 37 / F ADM Date: 06/18/23 Loc: [facility] Room: Type: [facility] Attending Dr: Crystal SAUCEDO Copies to: LEWIS Tobias Ordering Provider: LEWIS Tobias Date of Service: 06/18/23 MR/MR lumbar spine wo con: LUMBAR RADICULOPATHY MRI Lumbar Spine withoutcontrast TECHNIQUE: Multiplanar T1 and T2-weighted imaging of lumbar spine obtained without contrast. HISTORY: Chronic low back pain with radiation into the legs. Numbness right greater than left. COMPARISON: Plain film imaging 05/13/2023 The last fully segmented vertebral pair is operationally defined as L5/S1. POST SURGERY CHANGES: None BONE MARROW INFILTRATION: None BONE MARROW EDEMA: None BONY ALIGNMENT: Adequate bony alignment identified. SPINAL CANAL: No significant central canal narrowing. LUMBAR FRACTURE: None BONY LESIONS: None KIDNEYS: No hydronephrosis is identified. AORTA: No aortic aneurysm is seen. CONUS MEDULLARIS : The distal spinal cord is in adequate position without abnormality. Additional findings CONJOINED NERVE ROOT: None Lower thoracic level: Unremarkable L1-2 :Unremarkable L2-3: Unremarkable L3-4: Adequate disc. No herniation. Patent central canal and neural foramen. Mild posterior element hypertrophy. L4-5: Adequate disc spaces. No disc herniation. Patent central canal and neural foramen. Mild posterior element hypertrophy. L5-S1: Moderate spondylosis with endosteal scalloping and Modic type I changes. Large central disc extrusion with superior migration. Resultant moderate central canal stenosis. Mild posterior element hypertrophy. Mild bilateral neural foraminal narrowing. L5 17 mm anterior T1 and T2 weighted hyperintense lesion consistent with hemangioma. MR/MR lumbar spine wo con IMPRESSION: Large L5-S1 central disc extrusion with superior migration. Resultant moderate central canal stenosis.. Pre-MRI plain film assessment: None Impression dictated by: Ramon Harris M.D.06/18/2023 4:07 PM Dictation Location: [place] [address] Transcribed By: [facility] 06/18/23 1607 Dictated By: Ramon Harris DO 06/18/23 1556 Signed By: 06/18/23 1607 [facility] 06-03-2023 Outside Records [id number] #1.00OTGTIFF [facility] XR LUMBAR SPINE, AP/LATERALo n 05-13-2023 XR LUMBAR SPINE, AP/LATERAL [facility] Diagnostic Imaging [facility] [place] [address] Diagnostic Imaging Report : [id number] Signed Name: VALERIANORA TAMEZ Miguel MRUN: [id number] : 1985 Loc: [facility] Age / Sex: 37 / F ADM Status: REG CLI ADM Date: 05/13/23 Room/Bed: Ordering Physician: MELISA LO Procedure: XR LUMBAR SPINE, AP/LATERAL Order Number(s): [id number] Ordered Date: 05/13/23 Ordered Time: 1256 EXAMINATION: [...] 05/13/23 1321 Transcribed Date/Time: 05/13/23 1317 Normal [facility] Established Visit (Otolaryng ology)on 12-16-2022 Established Visit (Otolaryngology) No report was sent Normal [facility] Yosef 10-31-2022 BRANDON Telephone (ENDOMN) NORA KAUFMAN ([id number]) 1985 F Date Time Provider Department 10/31/22 IRENE MOSS During your visit today, we recorded the following information about you: Jessica Jimmie 10/31/2022 8:46 AM Signed Called pt to [...] Status:Closed by JESSICA MANSFIELD on 10/31/22 Normal [facility] Established Visit (Otolaryng ology)on 09-16-2022 Established Visit [...] 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 I will see her in 3 months. 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 I will see her in 3 months. [...] ago. She is to follow-up with her warehouse operations associate. Active Problems Facial pain (784.0) (R51.9) Goiter [...] Recorded: 16Sep2022 08:10AM Height5 ft 3 in Tagnly650 lb BMI Zyrbhigjix33.87 kg/m2 BSA Calculated1.77 Tobacco Useb) No Physical Exam Palpation of the parotid, neck, and thyroid field fails to show any worrisome masses or adenopathies. Palpation of the left preauricular area causes some discomfort. I cannot appreciate any underlying lesion. 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 I will see her after the scans. 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 I will see her after the scans. Chief Complaint Consultation for left jaw and ear pain History of Present IllnessThis patient is a former patient of mine [...] Vitamin C TABS Vitals Vital Signs Recorded: [id number] 08:21AM Height5 ft 3 in Sjbvtr282 lb 4.8 oz BMI Rvywogdhba17.28 kg/m2 BSA Calculated1.78 Tobacco Useb) No PHQ-2 [...] Scales' Signatures Electronically signed by : Cassius Smith MD; Aug 19 2022 8:41AM EST (Author) Normal [facility] Tobacco Screening.on 023 Adult depression screening assessment No allyve-Otolaryngolog [employer] Work Phone: Fall risk assessment a) No falls within the last year allyve-Otolaryngolog [employer] Work Phone: Tobacco use status CP b) No allyve-Otolaryngolog [employer] Work Phone: US PELVIS AND TRANSVAGon US [...] by: CHYNA BEE Date: 2022-06-06 07:02 Normal [facility] MG MAMM DX 3D LT CADon 06-05 MG MAMM DX 3D LT CAD Patient: NORA KAUFMAN Exam Date: 06/05/2022 : 1985 Gender:F Ordering : DR GLEN FULLER . Admission #: [id number] Family : Order #: [id number] CLICK HERE TO VIEW EXAM RADIOLOGY REPORT [...] lung cancer at age 48. LOCATION: [facility] BREAST COMPOSITION: Extremely dense, which lowers [...] MD on 06/05/2022 at 15:05 Normal [facility] US BREAST LEFT LIMITEDon US BREAST LEFT LIMITED Patient: NORA KAUFMAN Exam Date: 06/05/2022 : 1985 Gender:F Ordering : DR GLEN FULLER . Admission #: [id number] Family : Order #: [id number] CLICK HERE TO VIEW EXAM RADIOLOGY REPORT [...] lung cancer at age 48. LOCATION: [facility] BREAST COMPOSITION: Extremely dense, which lowers [...] MD on 06/05/2022 at 15:05 Normal [facility] GLUCOSE BLOODon 06-02-2022 Glucose [Mass/Vol] 90 mg/dL Normal 74-106 [facility] Comment on above: Performed By: #### L IPID, GLUC #### [facility] [address] [place] [address] Dr. Jose Nolasco LIPID PROFILEon 06-02-2022 CHOL-HDL RATIO NORM SEE BELOW Normal [facility] Comment on above: Result Comment: 3.3 - 4.4 LOW RISK 4.4 - 7.1 AVERAGE RISK 7.1 - 11.0 MODERATE RISK >11.0 HIGH RISK Performed By: #### L IPID, GLUC #### [facility] [address] [place] [address] [address] Jose Nolasco Cholesterol [Mass/Vol] 163 mg/dL Normal <=200 [facility] Comment on above: Performed By: #### L IPID, GLUC #### [facility] [address] [place] [address] [address] Jose Nolasco Cholesterol in HDL [Mass/Vol] 77 mg/dL Critically high 40-60 [facility] Comment on above: Performed By: #### L IPID, GLUC #### [facility] [address] [place] [address] [address] Jose Nolasco Cholesterol in LDL [Mass/Vol] 77.4 mg/dL Normal [facility] Comment on above: Performed By: #### L IPID, GLUC #### [facility] [address] [place] [address] [address] Jose Nolasco Cholesterol.total /Cholesterol in HDL [Mass ratio] 2.1 {ratio} Normal [facility] Comment on above: Performed By: #### L IPID, GLUC #### [facility] [address] [place] [address] [address] Jose Nolasco HDL NORMAL > or = 60 mg/dl - LO W CARDIOVASCULAR RISK <40 mg/dl - HIGH CARDIOVASCULAR RISK Normal [facility] Comment on above: Performed By: #### L IPID, GLUC #### [facility] [address] [address] [address] Jose Nolasco LDL CALC NORMAL SEE BELOW Normal [facility] Comment on above: Result Comment: <100 mg/dl OPTIMAL 100 - 129 mg/dl NEAR OR ABOVE OPTIMAL 130 - 159 mg/dl BORDERLINE HIGH 160 - 189 mg/dl HIGH >190 mg/dl VERY HIGH Performed By: #### L IPID, GLUC #### [facility] [address] [address] [address] Jose Nolasco Triglyceride [Mass/Vol] 43 mg/dL Normal <=150 [facility] Comment on above: Performed By: #### L IPID, GLUC #### [facility] [address] [address] [address] Jose Nolasco VLDL CALC 8.6 mg/dL Normal [facility] Comment on above: Performed By: #### L IPID, GLUC #### [facility] [address] [place] [address] [address] Jose Nolasco PAP ACOG PANEL 2: 30 to 65on 05-14-2022 . . Normal [facility] Comment on above: Result Comment: Perf ormed at: WB Performed By: #### 4 [id number] #### [facility] [address] [place] [address] [address] Jose Nolasco Age Gdln ACOG Testing 30-65 Normal [facility] Comment on above: Performed By: #### 4 [id number] #### [facility] [address] [place] [address] Dr. Jose Nolasco DIAGNOSIS: Comment Normal [facility] Comment on above: Result Comment: NEGA TIVE FOR INTRAEPITHELIAL LESION OR MALIGNANCY. Performed at: WB Performed By: #### 4 [id number] #### [facility] [address] [address] [address] Jose Nolasco HPV Aptima Negative Normal Negative [facility] Comment on above: Result Comment: This nucleic acid amplification test detects fourteen high-risk HPV types (16,18,31,33,35,39,45,51,52,56,58,59,66,68) without differentiation. Performed at: =G Performed By: #### 4 [id number] #### [facility] [address] [place] [address] Dr. Jose Nolasco HPV Genotype Reflex Comment Normal [facility] Comment on above: Result Comment: Crit eria not met, HPV Genotype not performed. Performed at: WB Performed By: #### 4 [id number] #### [facility] [address] [place] [address] Dr. Jose Nolasco Methodology: Comment Normal [facility] Comment on above: Result Comment: This liquid based ThinPrep(R) pap test was screened with the use of an image guided system. Performed at: [facility] Performed By: #### [id number] #### [facility] [address] [place] [address] Dr. Jose Nolasco Note: Comment Normal [facility] Comment on above: Result Comment: The Pap smear is a screening test designed to aid in the detection of premalignant and malignant conditions of the uterine cervix. It is not a diagnostic procedure and should not be used as the sole means of detecting cervical cancer. Both false-positive and false-negative reports do occur. . Performed at: WB Performed By: #### [id number] #### [facility] [address] [address] [address] Jose Nolasco Performed by: Comment Normal [facility] Comment on above: Result Comment: Josey Moreno Cafe Manager (ASCP) Performed at: WB Performed By: #### [id number] #### [facility] [address] [place], [place] [address] Dr. Jose Nolasco Specimen adequacy: Comment Normal [facility] Comment on above: Result Comment: Sati sfactory for evaluation. Endocervical and/or squamous metaplastic cells (endocervical component) are present. Performed at: WB Performed By: #### [id number] #### [facility] [address] [address] [address] Jose Nolasco MAMMO POST BIOPSY LEFTon MAMMO POST BIOPSY LEFT Patient: NORA KAUFMAN Exam Date: 11/28/2021 : 1985 Gender:F Ordering : DR GLEN FULLER . Admission #: [id number] Family : Order #: [id number] CLICK HERE TO VIEW EXAM RADIOLOGY REPORT [...] Bee MD on 11/28/2021 at 14:36 Normal [facility] MG STEREO CORE NDL W CLIP LT on 11-28-2021 MG STEREO CORE NDL W CLIP LT Patient: NORA KAUFMAN Exam Date: 11/28/2021 : 1985 Gender:F Ordering : DR GLEN FULLER . Admission #: [id number] Family : Order #: [id number] CLICK HERE TO VIEW EXAM RADIOLOGY REPORT PROCEDURE: MAMMOGRAM BIOPSY STEREO CORE COMPARISON: MG MAMM SCREEN 3D VERONICA CAD, 09/17/2021. INDICATIONS: [...] final. This exam was originally dictated in TournEase pacs system on November 28, 2021 Dictated by: Chyna Bee MD on 12/16/2021 at 07:20 Approved by: Chyna Bee MD on 12/16/2021 at 07:22 Normal [facility] Vital Signs Date Time Vital Sign Value Performing Clinician Facility 06-13-2024 11:18-0500 Body mass index (BMI) [Ratio] 29.41 kg/m2 Ashley HAN Work Phone: [facility] 06-13-2024 11:18-0500 Body weight 75.3 kg Ashley HAN Work Phone: [facility] 06-13-2024 11:18-0500 Diastolic blood pressure 70 mm[Hg] Ashley HAN Work Phone: [facility] 06-13-2024 11:18-0500 Systolic blood pressure 118 mm[Hg] Ashley HAN Work Phone: [facility] 08-03-2023 10:30-0500 Body height 162.56 cm Adrián Zavaleta Other [facility] 08-03-2023 10:30-0500 Body mass index (BMI) [Ratio] 28.66 kg/m2 Adrián Zavaleta Other [facility] 08-03-2023 10:30-0500 Body weight 75.75 kg Adrián Zavaleta Other [facility] 08-03-2023 10:30-0500 Diastolic blood pressure 78 mm[Hg] Adrián Zavaleta Other [facility] 08-03-2023 10:30-0500 Respiratory rate 18 /min Adrián Zavaleta Other [facility] 08-03-2023 10:30-0500 SaO2% (BldA) [Mass fraction] 99 % Adrián Zavaleta Other [facility] 08-03-2023 10:30-0500 Systolic blood pressure 124 mm[Hg] Adrián Zavaleta Other [facility] 07-31-2023 08:30-0500 Body height 162.56 cm [employer] Other [facility] 07-31-2023 08:30-0500 Body mass index (BMI) [Ratio] 27.8 kg/m2 [employer] Other [facility] 07-31-2023 08:30-0500 Body weight 73.48 kg [employer] Other [facility] 09-16-2022 08:10-0400 Body height 160.02 cm Crystal Claudio Work Phone: [facility] Work Phone: 09-16-2022 08:10-0400 Body mass index (BMI) [Ratio] 28.87 kg/m2 Crystal Claudio Work Phone: LX[facility]Rhamtdggflfhcg-Jah [facility] Work Phone: 09-16-2022 08:10-0400 Body surface area Derived from formula 1.77 m2 Crystal Claudio Work Phone: EN-Uossxbktczvann-Irp [place] Work Phone: 09-16-2022 08:10-0400 Body weight 73.94 kg Crystal Claudio Work Phone: VJ-Dhwsodjalqwewe-[facility]ow [facility] Work Phone: 08-19-2022 08:21-0500 Body height 160.02 cm Crystal Claudio Work Phone: LC-Orcwcwzxxrikpn-Waj [place] Work Phone: 08-19-2022 08:21-0500 Body mass index (BMI) [Ratio] 29.28 kg/m2 Crystal Claudio Work Phone: DG-Fhyjkdsubggkwm-Pzn [place] Work Phone: 08-19-2022 08:21-0500 Body surface area Derived from formula 1.78 m2 Crystal Claudio Work Phone: XM-Jaxarucfybxkok-Dkw [place] Work Phone: 08-19-2022 08:21-0500 Body weight 74.98 kg Crystal Claudio Work Phone: ZP-Nfnwyfprbqidni-Yyr [facility] Work Phone: Encounters Encounter Date Encounter Type Care Provider Facility Start: 06-13-2024 End: 06-13-2024 Abram HAN Work Phone: [facility] Start: 06-13-2024 End: 06-13-2024 Abram flowstommy HAN Work Phone: [facility] Start: 06-13-2024 End: 06-13-2024 Patient encounter procedure Ashley HAN Work Phone: [facility] Start: 06-13-2024 End: 06-13-2024 Periodic preventive med est patient 40-64yrs Ashley HAN Work Phone: [facility] Comment on above: Well woman exam with routine gynecological exam; Breast cancer screening by mammogram; Menorrhagia with irregular cycle Start: 03-24-2024 ambulatory Crystal Gonya Facilit y:[facility] Start: 03-14-2024 End: 03-14-2024 ambulatory Crystal Gonya Facility:[facility] Start: 03-02-2024 End: 03-02-2024 ambulatory Crystal Gonya Facility:[facility] Start: 02-10-2024 End: 02-10-2024 ambulatory Crystal Gonya Facility: [facility] Start: 09-26-2023 End: 09-26-2023 ambulatory Crystal Gonya Facility:[facility] Start: 09-24-2023 End: 09-24-2023 ambulatory Crystal Gonya Facility:[facility] Start: 09-22-2023 End: 09-22-2023 ambulatory Crystal Gonya Facility: [facility] Start: 08-03-2023 End: 08-03-2023 ambulatory Adrián Zavaleta Other [facility] Start: 08-03-2023 Office consultation new/estab patient 60 min Adrián Zavaleta [facility] Start: 07-31-2023 End: 07-31-2023 ambulatory Nora Ramos Other [facility] Start: 07-31-2023 Office outpatient ne w 45 minutes Nora Ramos [facility] Start: 06-18-2023 End: 06-18-2023 ambulatory Crystal Gonya Facility:[facility] Start: 06-18-2023 End: 06-18-2023 ambulatory MANAGER PHILOSOPHY-C Crystal Gonya Work Phone: [facility] Work Phone: Start: 06-18-2023 End: 06-18-2023 Patient encounter procedure MANAGER PHILOSOPHY-C Crystal Claudio Work Phone: [facility] [address] Work Phone: Start: 05-26-2023 End: 05-26-2023 ambulatory Crystal Claudio Facility:[facility] Start: 05-18-2023 End: 05-18-2023 ambulatory ASHLEY GUILLEN Not Available Start: 05-13-2023 End: 05-13-2023 ambulatory MELISA MCLEAN MANAGER PHILOSOPHY Facility:[facility] Start: 10-31-2022 Telephone encounter Irene Neal Work [...] 09-29-2022 ambulatory Irene Freedman MD Work Phone: [facility] Start: 09-29-2022 Patient encounter procedure Irene Freedman MD Work Phone: Endocrinology Comment on above: Appointment Cancelle d Start: 09-16-2022 Office outpatient vi sit 15 minutes Crystal Claudio Work Phone: CN-Wnopyokkofsojp-Lajmz ake Work Phone: Start: 09-16-[address] Cassius Smith Facalexia lity:[phone] Start: 09-06-2022 End: 09-06-2022 Subsequent hospital visit by physician [facility] Work Phone: [facility] Comment on above: Insulin resistance [ E88.81] Start: 08-19-2022 ambulatory Irene Freedman MD Work Phone: Endocrinology Comment on above: Check Up Start: 08-19-2022 Office outpatient ne w 30 minutes Crystal Claudio Work Phone: WT-Uapjtmockxwbxx-Vdaru matthew Work Phone: Start: 06-07-2022 Encounter for genera l adult medical examination without abnormal findings CHARAN CURRIE [facility] Start: 06-05-2022 End: 06-06-[address] GLEN FULLER . Facility:[facility] Start: 06-02-2022 End: 06-03-2022 ambulatory CHARAN CURRIE Facility:[facility] Start: 06-02-2022 End: 06-03-2022 Encounter for general adult medical examination without abnormal findings CHARAN CURRIE Facility:[facility] Start: 05-06-2022 End: 05-06-[address] GLEN FULLER . Facility:[facility] Start: 11-28-2021 End: 11-28-[address] GLEN FULLER . Facility:[facility] Start: 11-07-[address] Cleve Grimes Facility:[id number] Start: 09-24-2021 ambulatory Irene Freedman MD Work Phone: Endocrinology Comment on above: Test Result Procedures Date Procedure Procedure Detail Performing Clinician Start: 06-18-2023 MR lumbar spine wo con MANAGER PHILOSOPHY-C Crystal Claudio Work Phone: Start: 09-06-2022 Us soft tissue head & neck real time imge docm Irene Freedman MD Work Phone: section Crystal Claudio Work Phone: Plan of Treatment Date Care Activity Detail Author Start: 06-13-2024 End: 08-14-2025 MG Breast - bilateral Screening Bilateral screening mammogram Imaging Routine Breast cancer screening by mammogram Expected: 06/13/2024 (Approximate), Expires: 08/14/2025 [facility] Work Phone: Comment on above: Expected: 06/13/2024 (Approximate), Expires: 08/14/2025 Start: 06-13-2024 End: 06-13-2025 US for US PELVIS-TRANSVAG IF INDICATED Imaging Routine Menorrhagia with irregular cycle Expected: 06/13/2024 (Approximate), Expires: 06/13/2025 [facility] Comment on above: Expected: 06/13/2024 (Approximate), Expires: 06/13/2025 Start: 06-13-2024 End: 06-13-2024 Patient encounter procedure 06/13/2024 11:00 AM EST Office Visit [facility] [address] [address] Ashley Guillen PA [address] [place], [place] [id number] Arrived [facility] Comment on above: Arrived Start: 02-20-2023 Influenza vaccination [facility] Start: 12-16-2022 FUV, Provider: Cassius Smith, Status: Pen, Time: 8:15 AM FUV, Provider: Cassius Smith, Status: Pen, Time: 8:15 AM [facility]Voump[facility]uviwver[facility] Work Phone: Start: 08-21-2022 End: 10-21-2022 Hemoglobin A1c in Blood HGB A1C Lab Routine Insulin resistance Multiple thyroid nodules Expected: 08/21/2022, Expires: 10/21/2022 [facility] Work Phone: Comment on above: Expected: 08/21/2022 , Expires: 10/21/2022 Start: 08-21-2022 End: 10-21-2022 Thyrotropin [Units/volume] in Serum or Plasma TSH BLD Lab Routine Insulin resistance Multiple thyroid nodules Expected: 08/21/2022, Expires: 10/21/2022 [facility] Work Phone: Comment on above: Expected: 08/21/2022 , Expires: 10/21/2022 Start: 08-21-2022 End: 10-21-2022 Thyroxine (T4) free [Mass/volume] in Serum or Plasma T4 FREE/FREE THYROX Lab Routine Insulin resistance Multiple thyroid nodules Expected: 08/21/2022, Expires: 10/21/2022 [facility] Work Phone: Comment on above: Expected: 08/21/2022 , Expires: 10/21/2022 Start: 06-22-2022 DEPRESSION ASSESSMENT DEPRESSION ASS ESSMENT [facility] Start: 02-20-2022 Influenza vaccination [facility] Start: 11-08-2013 HPV TESTING HPV TESTING [facility] Start: 11-08-2004 PAP TESTING PAP TESTING [facility] Start: 11-08-2002 Urine microalbumin profile [facility] Start: 11-08-2001 HEPATITIS C SCREENING HEPATITIS C SC REENING [facility] Start: 11-08-2001 HIV SCREENING HIV SCREENING [facility] Start: 1995 Adult depression screening assessment DEPRESSION SCREENING [facility] Start: 11-08-1988 COVID-19 VACCINE (1) COVID-19 VACCIN E (1) [facility] Start: 05-11-1984 COVID-19 VACCINE (#1) COVID-19 VACCI NE (#1) [facility] Start: 1985 HEPATITIS B (1 of 3 - 3-dose series) HEPATITIS B (1 of 3 - 3-dose series) [facility] Start: 1985 Hepatitis B Vaccine (1 of 3 - 3-dose series) Hepatitis B Vaccine (1 of 3 - 3-dose series) [facility] THIN PREP TIS PAP AN D HR HPV DNA THIN PREP TIS PAP AND HR HPV DNA Pathology and Cytology Routine Well woman exam with routine gynecological exam Ordered: 06/13/2024 [facility] Comment on above: Ordered: 06/13/2024 End: 09-20-2023 Us soft tissue head & neck real time imge docm US THYROID/PARATHYROID Radiology Routine Insulin resistance Multiple thyroid nodules 1 Occurrences starting 08/21/2022 until 09/20/2023 [facility] Work Phone: Comment on above: 1 Occurrences starti ng 08/21/2022 until 09/20/2023 [facility] P[facility] Date Payer Category Payer Self-pay [id number] 2022 Medicaid [id number] 2021 Blue Cross Blue Shield BCBS [id number] 2020 Medicaid [employer] MEDICAID [id number] 2020-Present [phone] [address] [place] [address] Medicaid [id number] 2020 Unknown [employer] BLUE ACCE SS PPO [id number] 2020-Present [phone] [address] [place] [address] PPO [id number] 2020 Unknown 1985 Unknown [id number] 2.840.1.457085.3.579.2. 356 1985 Unknown [id number] 2.840.1.177516.3.579.2. 356 1985 Unknown [id number] 2.840.1.382640.3.579.2. 356 1985 Unknown [id number] 2.16840.1.737987.3.579.2. 593 1985 Unknown [id number] 2.840.1.081114.3.579.2. 593 1985 Unknown [id number] 2.16.840.1.072336.3.579.2. 593 1985 Unknown [id number] 2.16.840.1.482507.3.579.2. 593 1985 Unknown [id number] 2.16.840.1.644060.3.579.2. 1259 1983 Unknown [id number] 2.16.840.1.526724.3.579.2. 297 1985 Unknown [id number] 2.16.840.1.670857.3.579.2. 718 1983 Unknown [id number] 2.16.840.1.081926.3.579.2. 8 1985 Unknown [id number] 2.16.840.1.624519.3.579.2. 718 1985 Unknown [id number] 2.16.840.1.633509.3.579.2. 718 1985 Unknown [id number] 2.16.840.1.091681.3.579.2. 718 1985 Unknown [id number] 2.16.840.1.655388.3.579.2. 718 1985 Unknown [id number] 2.16.840.1.558565.3.579.2. 718 1985 Unknown [id number] 2.16.840.1.592407.3.579.2. 718 1985 Unknown [id number] 2.16.840.1.933161.3.579.2. 718 1959 Medicaid [id number] 1959 Unknown [id number] Medicaid [employer] [id number] [facility] [id number] Unknown [id number] 2.16.840.1.576704.3.579.2. 443 Unknown [id number] 2.16.840.1.804302.3.579.2. 531 Social History Date Type Detail Facility Start: 02-24-2018 End: 03-26-2018 Tobacco smoking status NHIS Ex-smoker [facility] End: 06-22-2011 History of tobacco use Current smoker [facility] Start: 02-24-2018 End: 06-13-2024 Cigarettes smoked current (pack per day) - Reported 0.5 [facility] Start: 02-24-2018 End: 03-26-2018 Tobacco use and exposure Smokeless tobacco non-user [facility] Start: 05-20-2021 Alcohol intake Current drinke r of alcohol (finding) [facility] Start: 1985 Sex Assigned At Not on file [facility] End: 06-22-2011 History of tobacco use Cigarette Smoker [facility] Work Phone: Start: 05-20-2021 End: 06-13-2024 Tobacco use panel [facility] National Score (1-10 0), lower number is lower risk Not on file [facility] Start: 1985 Sex Assigned At Female F [facility] Start: 05-13-2023 Tobacco smoking stat us SCIS Never smoked tobacco [facility] Clinical Notes 07-23-2022 to 06-13-2024 EMELY Melgoza - 06/13/2024 11:00 AM EST Note Date & Type Note Facility 06-13-2024 History of Presen t illness Narrative Reason for Appointment: Patient ID: Nora Kaufman is a 38 y.o. female who presents for Gynecologic Exam Patient presents today for Annual Exam. MEDICATIONS Current Outpatient Medications Medication Instructions busPIRone (Buspar) 7.5 MG tablet cyclobenzaprine (FLEXERIL) 5 mg, Oral, 3 times daily PRN ferrous sulfate 325 (65 Fe) MG EC tablet naproxen (NAPROSYN) 500 mg, Oral, 2 times daily with meals predniSONE (Deltasone) 10 MG tablet Take 4 tablets by mouth daily for 3 days, then 3 tablets daily for 3 days, then 2 tablets daily for 3 days, then 1 daily for 3 days. Probiotic Product (Align) 4 MG capsule ALLERGIES Allergies Allergen Reactions Codeine Hives and Nausea And Vomiting Other Reaction(s): Fever Other Reaction(s): Hives, Other (See Comments), Other: See Comments, Vomit, Vomiting Other Reaction(s): Fever fever fever Penicillins Rash, Hives and Nausea And Vomiting Other Reaction(s): Hives, Other (See Comments), Other: See Comments, Vomiting Fever PROBLEMS Active Ambulatory Problems Diagnosis Date Noted No Active Ambulatory Problems Resolved Ambulatory Problems Diagnosis Date Noted No Resolved Ambulatory Problems Past Medical History: Diagnosis Date Family history of breast cancer in mother Hypothyroidism (CMS/HCC) Inflammatory bowel disease Tumor 2001 HISTORY PAST MEDICAL HISTORY SOCIAL HISTORY Past Medical History: Diagnosis Date Family history of breast cancer in mother Hypothyroidism (CMS/HCC) Inflammatory bowel disease Tumor 2001 in base of neck/head Social History Tobacco Use Smoking status: Never Smokeless tobacco: Not on file Substance Use Topics Alcohol use: Not on file Drug use: Not on file FAMILY HISTORY Family History Problem Relation Name Age of Onset Cancer Mother Cancer Maternal Grandmother Hypertension Other SURGICAL HISTORY Past Surgical History: Procedure Laterality Date CERVICAL BIOPSY W/ LOOP ELECTRODE EXCISION SECTION, LOW TRANSVERSE x 3 - tubal with last REVIEW OF SYSTEMS Review of Systems: Review of Systems All other systems reviewed and are negative. OBJECTIVE Objective: Physical Exam Constitutional: Appearance: Normal appearance. She is well-developed. Genitourinary: Vulva normal. Cardiovascular: Rate and Rhythm: Normal rate and regular rhythm. Pulmonary: Effort: Pulmonary effort is normal. Breath sounds: Normal breath sounds. Abdominal: General: Bowel sounds are normal. There is no distension. Palpations: Abdomen is soft. Tenderness: There is no abdominal tenderness. There is no guarding or rebound. Musculoskeletal: General: No swelling. Normal range of motion. Right lower leg: No edema. Left lower leg: No edema. Neurological: Mental Status: She is alert and oriented to person, place, and time. Skin: General: Skin is warm and dry. Psychiatric: Mood and Affect: Mood normal. Behavior: Behavior normal. Vitals and nursing note reviewed. Exam conducted with a client coordinator present. Vitals: Estimated body mass index is 30.29 kg/m as calculated from the following: Height as of 07/15/22: 5' 3 . Weight as of 05/18/23: 171 lb. BP: No LMP recorded. ASSESSMENT & PLAN ICD-10-CM 1. Well woman exam with routine gynecological exam Z01.419 THIN PREP TIS PAP AND HR HPV DNA 2. Breast cancer screening by mammogram Z12.31 Bilateral screening mammogram Bilateral screening mammogram Annual Exam: Patient presents today for an annual exam. Patient states she is doing well . Pap was obtained without difficulty. Patient does have heavy irregular periods. Discussed ultrasound with patient and discussed Mirena with patient to help control the bleeding. Patient states having Hysterectomy and being off work may have to be towards end of year as she would have to use all her time prior. Patient will think about Mirena as she would not be able to get off work for Surgery. Patient states had Mirena before and did not bleed but not bleeding is not great either. Orders Placed This Encounter Procedures Bilateral screening mammogram Follow Up: Patient is to return in one year for annual unless needed otherwise. Documented by Lexis Wilson LPN on behalf of: EMELY Melgoza documented in this encounter [facility] 09-26-2023 Note Patient Education Ma terials Follows: Antibiotic Medicine, Adult Antibiotic medicines are used to treat infections caused by bacteria. These medicines do not work for illnesses caused by viruses. Antibiotics work by killing the bacteria that are making you sick, but they can also have serious side effects. Antibiotics must be used safely and only when needed. When do I need to take antibiotics? You may need antibiotics for: ? A urinary tract infection (UTI). ? Strep throat. ? Bacterial sinus infection. ? Meningitis. ? Serious lung infections. Your health care provider may start you on antibiotics while you are waiting for test results. Tests may include a culture of the throat, urine, blood, or mucus. Your health care provider may change or stop your antibiotic depending on your test results. When are antibiotics not needed? You do not need antibiotics for most common illnesses. These illnesses may be caused by a virus, not by bacteria. You do not need antibiotics for: ? The common cold. ? The flu (influenza). ? Sore throat. ? Discolored mucus. ? Bronchitis. Antibiotics are not always needed for all infections caused by bacteria. Many of these infections clear up on their own. Do not take antibiotics when they are not needed. How long should I take my antibiotic? You must take the entire amount prescribed to you. Take your antibiotics as told by your health care provider. Do not stop taking your antibiotics even if you start to feel better. If you stop taking them too soon: ? You may feel sick again. ? Your infection may get harder to treat. Each course of antibiotics needs a different length of time to work. The length of time may vary from a few days to a few weeks. What if I miss a dose? Try not to miss any doses of medicine. If you miss a dose, call your health care provider or pharmacist for help. Sometimes, it is okay to take the missed dose as soon as possible. Do not take double or extra doses. What are the risks of taking antibiotics? Antibiotics can cause: ? Allergic reactions. ? Nausea. ? Yeast infections. ? Liver problems. Antibiotics can also cause an infection called Clostridioides difficile (C. difficile or C. diff), which causes severe diarrhea. This infection happens when the antibiotics kill the healthy bacteria in your intestines. This allows C. diff to grow. C. diff needs to be treated right away. Let your health care provider know if: ? You have diarrhea while taking an antibiotic. ? You have diarrhea after you stop taking an antibiotic. C. diff infection can start weeks after stopping the antibiotic. Taking an antibiotic also puts you at risk for getting sick in the future with bacteria that do not respond to medicine (antibiotic-resistant infection). Antibiotics can cause bacteria to change so that if the antibiotic is taken again, the medicine cannot kill the bacteria. These infections can be more serious because they are hard, or sometimes impossible, to treat. Do antibiotics affect control? control pills may not work while you are taking antibiotics. If you are taking control pills: ? Keep taking them as usual. ? Use a second form of control, such as a condom, to avoid unwanted . Do this for as long as told by your health care provider. What else should I know about taking antibiotics? ? Take antibiotics exactly as told. ? Take the correct amount of medicine at the same time each day. ? Ask your health care provider: ? How long to wait between doses. ? If you should take your antibiotic with food or water. ? If you should avoid certain foods, drinks, or medicines while taking your antibiotics. ? If you need to watch for any side effects. ? Use only the antibiotics prescribed to you by your health care provider. Do not use antibiotics prescribed for someone else. ? Drink a large glass of water when taking your antibiotics unless told otherwise. Drink enough fluid to keep your urine pale yellow. ? Ask your pharmacist for a dosage syringe, cup, or spoon that correctly measures your antibiotics. ? Ask your pharmacist or health care provider how to safely get rid of leftover medicine. Follow these instructions at home: ? Take your antibiotics as told by your health care provider. Do not stop taking your antibiotics even if you start to feel better. ? Return to your normal activities as told by your health care provider. Ask your health care provider what activities are safe for you. Contact a health care provider if: ? Your symptoms get worse. ? You have new joint pain or muscle aches that begin after starting your antibiotic. ? You have side effects from your antibiotic, such as: ? Stomach pain. ? Diarrhea. ? Nausea. ? White patches in your mouth or throat. Get help right away if: ? You have signs of a severe allergic reaction to antibiotics. If you have (more content not included)... [facility] 08-03-2023 Evaluation note Encounter Date Diagnosis Assessment Notes Jul, Lumbar radiculopathy (ICD-10 - M54.16) 37 year old female presents with complaints of low back pain with radiation down the right lower extremity to the knee and intermittently to the foot. She also notes intermittent numbness and tingling to the right lower extremity. She feels pain is an intermittent sharp pain and a constant dull ache. She notes pain started many years ago and became aggrecated 3 months ago with no known inciting trauma. She denies any recent physical therapy, she reports no significant benefit following physical therapy 2 years ago and feels this aggrevated her pain. She continues taking NSAIDS and uses ice or heat as tolerated for pain. She feels pain can negatively impact her daily activities. Prior to examining the patient, I independently reviewed office notes from referring provider, Nora Ramos. Pertinent imaging of the lumbar spine was reviewed and discussed in detail with the patient which showed disc herniation causing narrowing in the lumbar spinal canal. History, physical examination and available images are consistent with lumbar radiculopathy, lumbar degeneratice disc disease, sacroilitis and lumbosacral spondylosis. Anatomy of spine as well as different treatment options were discussed in detail with patient in regards to patients condition. I recommend we proceed with a bilateral L5 transforaminal epidural steroid injection under fluoroscopic guidance. Risks and benefits of procedure explained to patient; patient verbalizes understanding. Jul, DDD (degenerative disc disease), lumbar (ICD-10 - M51.36) Continue with current treatment plan. Jul, Sacroiliitis (ICD-10 - M46.1) If her pain persists or worsens, we can consider bilateral SI joint injection in the future, if applicable. Jul, Spondylosis without myelopathy or radiculopathy, lumbosacral region (ICD-10 - M47.817) In the future if the pain persists, we can consider lumbar facet MBB. Jul, Other chronic pain (ICD-10 - G89.29) Follow up after procedure. Jul, Other Medical decision making shows a new problem to me with further workup planned or suggested with the potential for extensive treatment options that were considered with the most applicable given this patient's situation as noted above. Treatment options considered include a combination of physical therapy approaches, pharmacologic management, and interventional procedures. Those most applicable to the patient were discussed at this time. Risk of complications and/or morbidity and mortality is high given that acute and chronic pain poses a threat to life and bodily function if undertreated, poorly treated or with failure to maintain adequate treatment and timely followup. Given the serious and fluctuating nature of pain with extensive consideration for whenever pain changes, there always remains the possibility of prolonged functional impairment requiring constant patient reassessment and high-level medical decision making. The amount and complexity of data reviewed is high given that patient labs, radiology reports, and other test were obtained, reviewed and summarized as applicable from the physician portal and/or outside medical records. Pertinent positive and negative findings were considered in medical decision-making. [facility] Other 02-09-2024 Evaluation note* Encounter Date Diagnosis Assessment Notes Treatment Notes Treatment Clinical Notes Jul, Spinal stenosis, lumbar region without neurogenic claudication (ICD-10 - M48.061) 1. Lumbar disc herniation at L5-S1: Diagnostic test results: I independently reviewed the MRI face to face with patient from 06/18/23 which revealed a sever disc protrusion at L5-S1, moderate spondylosis with scalloping modic type one change, Sever central disc extrusion with superior migration, moderate central canal stenosis, mild posterior element hypertrophy, and mild bilateral neural foraminal narrowing. Additionally, an anterior T1 hyperintense lesion (hemangioma) was identified at L5. I will refer the patient to Dr. Zavaleta for an L5-S1 diagnostic injection to determine if the steroid alleviates the pain. Schedule a follow-up appointment with Dr. Dunne in four weeks for a surgical consult to discuss further treatment options, such as discectomy. OARRS reviewed, Pharmacological managment, continue using medication from urgent care, lidocaine patches and Thermacare for pain relief. Will refill for lidocaine patches and cyclobenzaprine muscle relaxer.2. Leg pain and weakness- Monitor the patient's leg pain and weakness following the L5-S1 diagnostic injection. Encourage the patient to continue with home exercises using the Hinge reuben, but avoid activities that aggravate the pain. 3. Discussion of conservatieve treatment and if any worsening or intractable apin return to [facility] room. WIll follow up in 4 weeks to discuss surgical consult with Dr. Dunne and discuss potential surgical interventions. Jul, Radiculopathy, lumbar region (ICD-10 - M54.16) Jul, Sacroiliac inflammation (ICD-10 - M46.1) Jul, Neuroforaminal stenosis of lumbar spine (ICD-10 - M48.061) Jul, Herniation of intervertebral disc of lumbar region (ICD-10 - M51.26) [facility] Other 05-12-2023 Miscellaneous Notes* Telephone Encounter - Jessica Mansfield - 10/31/2022 8:40 AM EDT Called pt to r/s 11/[address] Ru Freedman -due to provider being called into a meeting. Patient was unhappy about appointment r/s and declined rescheduling at this time, will call back office to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
[2024-06-23 18:10] LABS: Age Gdln ACOG Testing Note (.); HPV Aptima Negative (Negative); IGP, Aptima HPV, rfx 16/18,45 Note (.)
== END 2024-06-13 20:41 | disposition home or self-care (01) ==
LOC: LAB 20:40
PROVIDERS: Visit Provider Physician Assistant
DX: Z01.419 Encounter for gynecological examination (general) (routine) without abnormal findings (principal)
CPT/HCPCS: 87624; 88175

== ENCOUNTER 2024-07-14 13:29 | Outpatient (OUT) | payer BC, SELFPAY ==
--- NOTE | 2024-07-14 13:33 | MM_ITS ---
Patient Name: NORA LUZ MR#: [id number] : 1985 Exam Date: 07/14/2024 Ordering Doctor: EMELY Martinez . RADIOLOGY REPORT PROCEDURE: MM TOMOSYNTHESIS SCREENING BI COMPARISON: MM TOMOSYNTHESIS SCREENING BI, 06/12/2023. MG MAMM DX 3D LT CAD, 06/05/2022. INDICATIONS: Screening Calculator Name NCI Breast Cancer Risk Assessment Tool 5 Year Breast Cancer Risk 1.70% Lifetime Breast Cancer Risk 22.10% Personal Breast Cancer No Personal Ovarian Cancer No Treatments None Family Cancers Mother with breast cancer at age 66; Grandmother-maternal with breast cancer at age ~60; Uncle-paternal with lung cancer at age 50. LOCATION: [facility] BREAST COMPOSITION: The breasts are extremely dense, which lowers the sensitivity of mammography. FINDINGS: DIAGNOSTIC CATEGORY 2--BENIGN FINDING. NO CHANGE FROM COMPARISON. Scattered benign-appearing nodules are present. RIGHT BREAST: No significant suspicious finding. LEFT BREAST: No significant suspicious finding. RECOMMENDATIONS: ROUTINE MAMMOGRAM AND CLINICAL EVALUATION IN 12 MONTHS. PLEASE NOTE: A NORMAL MAMMOGRAM DOES NOT EXCLUDE THE POSSIBILITY OF BREAST CANCER. A CLINICALLY SUSPICIOUS PALPABLE LUMP SHOULD BE BIOPSIED. Dictated by: Mata Lewis MD on 07/14/2024 at 16:12 Approved by: Mata Lewis MD on 07/14/2024 at 16:13
== END 2024-07-14 13:30 | disposition home or self-care (01) ==
LOC: MAMMO 13:29
PROVIDERS: Visit Provider Family Medicine
DX: Z12.31 Encounter for screening mammogram for malignant neoplasm of breast (principal); Z80.3 Family history of malignant neoplasm of breast; Z80.1 Family history of malignant neoplasm of trachea, bronchus and lung
CPT/HCPCS: 77063; 77067